=== PATIENT | female | born 1955 | race Caucasian/White ===

== ENCOUNTER → 2017-12-05 11:22 | Outpatient (CLI) | payer OTHER, SELFPAY ==
[2017-12-05 13:01] LABS: AST(SGOT) 26 U/L (15-37); Alanine Aminotransfer ALT/SGPT 52 U/L (13-56); Cholesterol 140 mg/dL (200); High Density Lipoprotein 45 mg/dL; T4 Total, Thyroxin 10.9 ug/dL (4.8-13.9); Triglycerides 113 mg/dL; Very Low Density Lipoprotein 23 mg/dL (5-40)
== END ==
PROVIDERS: Family Provider Family Medicine; PCP Family Medicine; Visit Provider Family Medicine
DX: E78.5 Hyperlipidemia, unspecified (principal); E03.9 Hypothyroidism, unspecified
CPT/HCPCS: 36415; 80061; 84436; 84443; 84450; 84460

== ENCOUNTER → 2018-02-18 11:22 | Outpatient (CLI) | payer OTHER, SELFPAY ==
[2018-02-04 14:54] VITALS: BMI 35.6
--- NOTE | 2018-02-18 11:27 | BD_ITS ---
STUDY: DUAL ENERGY X-RAY ABSORPTIOMETRY / DXA REASON FOR EXAM: Female, 62 years old. The patient is postmenopausal. Loss of height. TECHNIQUE: Bone Mineral Density (BMD) measurements of lumbar spine and bilateral hips were obtained. COMPARISON: Comparison is made with prior study dated October 28, 2012. FINDINGS: Lumbar Spine (L1-L4): g/cm2 (1.412) / T-score (1.9) / Z-score (3.3) Findings are suggestive of normal bone density with a low fracture risk. Left Femur Total: g/cm2 (1.278) / T-score (2.1) / Z-score (3.2) Left Femoral Neck: g/cm2 (1.367) / T-score (2.4) / Z-score (3.7) Right Femur Total: g/cm2 (1.23) / T-score (1.8) / Z-score (2.9) Right Femoral Neck: g/cm2 (1.173) / T-score (1.) / Z-score (2.3) The T-Scores on the most recent prior examination were: Lumbar Spine (L1-L4): There has been improvement of bone density since the previous examination. Left Femur Total: which represents an improvement of 2.2%. Right Femur Total: which represents an improvement of 4.4%. BD/Dexa Bone Density Study IMPRESSION: The patient is considered normal as outlined below according to World [place] Organization (WHO) criteria with a low fracture risk. There has been improvement of bone density since the previous examination. Reference Information: The T-score is the number of standard deviations above or below the standard which is normal for young adults at their peak bone mineral density. The World Health Organization (WHO) interprets the T-scores as follows: Above -1 Normal bone density Between -1 and -2.5 Osteopenia Equal to / or below -2.5 Osteoporosis As a practical clinical guideline, osteopenia may be graded as follows: Mild -1 through -1.5 Moderate -1.6 through -2.0 Severe -2.1 through -2.4 The Z-score is the number of standard deviations above or below age-matched controls. A Z-score of less than -1.5 would be considered abnormal. References: 1. NIH Osteoporosis and Related Bone Diseases http://www.osteo.org 2. International Society for Clinical Densitometry http://www.iscd.org 3. National Osteoporosis Foundation http://www.nof.org Electronically Signed: Sreedhar Pizano MD at 15:59 EST Tel [phone], Service support ,
--- NOTE | 2018-02-18 11:28 | BI_ITS ---
MAMMOGRAPHY - BILATERAL SCREENING REASON FOR EXAM: Female, 62 years old. Routine annual screening examination. PERTINENT HISTORY: Sister with breast cancer. TECHNIQUE: Digital bilateral breast rich (3D mammographic acquisition) in the CC and MLO projections. 2-D mediolateral oblique (MLO) and craniocaudad (CC) views of both breasts were obtained. CAD: Full Field Digital Mammography with Computer Added Detection was performed. COMPARISON: Comparison is made with prior examination dated September 30, 2016 and July 19, 2015. FINDINGS: Breast Composition: There are scattered areas of fibroglandular density. There are no dominant masses or suspicious calcifications. Stable small bilateral axillary lymph nodes. No other significant abnormalities are identified. There has been no significant change since the prior study. BI/SCREENING MAMM (CAD), BILAT IMPRESSION: Stable bilateral screening mammogram. Yearly follow-up mammogram recommended. (A) ASSESSMENT CATEGORY: BIRADS Category 2: Benign. A letter regarding these results will be sent to the patient by the facility within 30 days. Approximately 10% of breast cancers are not detected by mammography. A normal mammogram should not delay biopsy of a clinically suspicious abnormality. [id number] Electronically Signed: Sreedhar Pizano MD at 12:49 EST Tel [phone], Service support ,
--- OUTSIDE RECORDS SUMMARY | 2018-05-22 15:29 | XMS RPT_ITS ---
:1955 Author Organization OHIP Care Team Providers Name Role Phone Bisi Hines PA-C Attending Unavailable Rocío Marjorie Referring Unavailable Rocío Marjorie Attending Unavailable Rocío Marjorie Referring Unavailable Rocío, Marjorie Primary Care Unavailable Glenroy Clifton Attending Unavailable Marjorie Alford Referring Unavailable Rocío, Marjorie Primary Care Unavailable Rocío Marjorie Attending Unavailable Joke, Marjorie Primary Care Unavailable Jayant Youngblood Attending Unavailable Marjorie Alford Referring Unavailable Jayant Youngblood Attending Unavailable Marjorie Alford Referring Unavailable PROBLEMS PROBLEMS DATE TYPE CONDITION / CODE ATTENDING STATUS SOURCE 03/10/2018 Unknown K64.5 - Perianal Jayant Youngblood Active [facility] venous thrombosis Community / K64.5(ICD-10) Hospital Repository 03/13/2018 Unknown E78.5 - Marjorie Alford Active [facility] Hyperlipidemia, Community unspecified / Hospital E78.5(ICD-10) Repository PROCEDURES PROCEDURES No Procedure Records FoundRESULTS RESULTS SURGERY VISIT REPORT Observed: 03/10/2018 Status: F Source: [place] 7:34 AM [facility] REPOSITORY [facility] [address] [place] [address] OFFICE VISIT Date of Service: 02/04/18 MR#: [id number] Acct: [id number] Name: PATRICK DAMON Rep #: [id number] : 1955 Provider: Jayant Youngblood MD Age/Sex: 62/F Location: [facility] Status: Signed with Addenda ADDENDUM by Jayant Youngblood MD on 03/10/18 at 0734 OFFICE PROCEDURES Office Procedure Documentation entered by Jayant Youngblood MD 03/10/18 07:34: 03/10/18 0734 <Electronically signed by Jayant Youngblood MD> Date Jayant Youngblood MD cc: * Signed Intake Vital Signs02/04/18 Body Mass Index (BMI) 35.6 02/04/18 Body Mass Index (BMI) 35.6 Intake Visit Reasons: Thrombosed Hemorrhoid Allergies oxycodone HCl [From Percocet] Adverse Reaction (Verified 02/04/18 14:50) Vomiting Medications Aspirin E.C. [Ecotrin] 81 mg PO DAILY@0800 05/08/16 [History Confirmed 02/04/18] Atorvastatin Calcium [Lipitor] 20 mg PO QHS 05/08/16 [History Confirmed 02/04/18] Latanoprost 0.005% [Xalatan Opthalmic] 1 drp EACH EYE QHS 05/08/16 [History Confirmed 02/04/18] Levothyroxine [Synthroid] 112 mcg PO DAILY 05/08/16 [History Confirmed 02/04/18] Ibuprofen 600 mg PO Q6H PRN PRN #30 tab 05/16/16 [Rx Confirmed 02/04/18] metronidazole 1 % topical gel 1 applic TOPICAL DAILY 01/28/18 [History Confirmed 02/04/18] PFSH Medical History Back pain (Acute) GERD (gastroesophageal reflux disease) (Acute) H/O rosacea (Acute) Hemorrhoid (Acute) Hypercholesterolemia (Acute) Hypothyroidism (Acute) Thrombosed hemorrhoids (Acute) H/O: hysterectomy (Inactive) Surgical History History of appendectomy (Acute) History of carpal tunnel release (Acute) History of cholecystectomy (Acute) History of colonoscopy (Acute) History of hysterectomy (Acute) History of lumpectomy (Acute) S/P appendectomy (Inactive) S/P carpal tunnel release (Inactive) S/P cholecystectomy (Inactive) S/P tonsillectomy (Inactive) Status post left breast lumpectomy (Inactive) Family History Mother Cancer pancreas Father Heart disease Sister Breast cancer Social History Smoking Status: Never smoker HPI HPI HPI: PATRICK DAMON, is a 62 F who presents to the office today for Office Procedures Hemorrhoid Provider Documentation Provider Documentation: Preoperative diagnosis: Thrombosed external hemorrhoid Postoperative diagnosis: The same Procedure: Evacuation of thrombosed external hemorrhoid Surgeon: Dr. Youngblood Procedure: Patient was noted to have an external thrombosed hemorrhoid on the right lateral side. This was prepped with Betadine. 1% lidocaine plain was injected. I dissected down and evacuated a extremely large thrombosed external hemorrhoid. Clotted blood was not sent to pathology. It all appeared benign. I had excellent hemostasis. I saw no other obvious thrombosed hemorrhoids. Sterile dressings were applied. The patient tolerated the procedure well. Patient will continue to do warm soaks in Epsom salts twice a day. She will follow back up with Bisi Hines in 1 week Alert Casa Alert Billing: Yes Hemorrhoid 85808 Evacuation Procedure Time Out Time Out Informed consent given: Yes Consent signed: Yes Time out checklist: patient, procedure, site marked/identified, positioning of patient, supplies available, allergies confirmed, team agrees on procedure Time out staff in room: Yes Time out verified: Yes Time out date: 02/04/18 Time out time: 14:30 Assessment AND Plan Problems 1. Thrombosed hemorrhoids K64.5 Orders Orders: Medications Discontinued: oxycodone-acetaminophen 5-325 mg (Percocet) D1 tab PO Q6H 3 days PRN 10 tabs 0RF pain iscontinued Reason: By Stop Date Coding Level of Care Code Attention Is Support Analyst Diagnoses Thrombosed hemorrhoids K64.5 Additional Codes Hemorrhoid - Hemorrhoid: 60041 Evacuation (95000) 02/11/18 0828 <Electronically signed by Jayant Youngblood MD> Date Jayant Youngblood MD Cosigner Signature: Date (if applicable) CC: SCREENING MAMM (CAD), Observed: 02/18/2018 Status: F Source: [facility] 11:28 AM [facility] REPOSITORY [facility] [address] [place] [address]67 SCREENING MAMM (CAD), BILAT MR#: [id number] Acct: [id number] Name: PATRICK DAMON Rep #: [id number] : 1955 F 62 From: Sreedhar Pizano MD PCP: Marjorie Alford MD Status: REG CLI Study: SCREENING MAMM (CAD), BILAT Date of Exam: 02/18/18 Exam# [id number] Ordering Dr: Marjorie Alford MD MAMMOGRAPHY - BILATERAL SCREENING REASON FOR EXAM: Female, 62 years old. Routine annual screening examination. PERTINENT HISTORY: Sister with breast cancer. TECHNIQUE: Digital bilateral breast rich (3D mammographic acquisition) in the CC and MLO projections. 2-D mediolateral oblique (MLO) and craniocaudad (CC) views of both breasts were obtained. CAD: Full Field Digital Mammography with Computer Added Detection was performed. COMPARISON: Comparison is made with prior examination dated September 30, 2016 and July 19, 2015. FINDINGS: Breast Composition: There are scattered areas of fibroglandular density. There are no dominant masses or suspicious calcifications. Stable small bilateral axillary lymph nodes. No other significant abnormalities are identified. There has been no significant change since the prior study. BI/SCREENING MAMM (CAD), BILAT IMPRESSION: Stable bilateral screening mammogram. Yearly follow-up mammogram recommended. (A) ASSESSMENT CATEGORY: BIRADS Category 2: Benign. A letter regarding these results will be sent to the patient by the facility within 30 days. Approximately 10% of breast cancers are not detected by mammography. A normal mammogram should not delay biopsy of a clinically suspicious abnormality. [id number] Electronically Signed: Sreedhar Pizano MD at 12:49 EST Tel [phone], Service support , CC: Marjorie Alford MD Beck Tender: Signed DEXA BONE DENSITY Observed: 02/18/2018 Status: F Source: [facility] ST[facility] 11:26 AM [facility] REPOSITORY [facility] [address] [place] [address] Dexa Bone Density Study MR#: [id number] Acct: [id number] Name: PATRICK DAMON Rep #: [id number] : 1955 F 62 From: Sreedhar Pizano MD PCP: Marjorie Alford MD Status: REG CLI Study: Dexa Bone Density Study Date of Exam: 02/18/18 Exam# [id number] Ordering Dr: Marjorie Alford MD STUDY: DUAL ENERGY X-RAY ABSORPTIOMETRY / DXA REASON FOR EXAM: Female, 62 years old. The patient is postmenopausal. Loss of height. TECHNIQUE: Bone Mineral Density (BMD) measurements of lumbar spine and bilateral hips were obtained. COMPARISON: Comparison is made with prior study dated October 28, 2012. FINDINGS: Lumbar Spine (L1-L4): g/cm2 (1.412) / T-score (1.9) / Z-score (3.3) Findings are suggestive of normal bone density with a low fracture risk. Left Femur Total: g/cm2 (1.278) / T-score (2.1) / Z-score (3.2) Left Femoral Neck: g/cm2 (1.367) / T-score (2.4) / Z- score (3.7) Right Femur Total: g/cm2 (1.23) / T-score (1.8) / Z-score (2.9) Right Femoral Neck: g/cm2 (1.173) / T-score (1.) / Z- score (2.3) The T-Scores on the most recent prior examination were: Lumbar Spine (L1-L4): There has been improvement of bone density since the previous examination. Left Femur Total: which represents an improvement of 2.2%. Right Femur Total: which represents an improvement of 4.4%. BD/Dexa Bone Density Study IMPRESSION: The patient is considered normal as outlined below according to World [place] Organization (WHO) criteria with a low fracture risk. There has been improvement of bone density since the previous examination. Reference Information: The T-score is the number of standard deviations above or below the standard which is normal for young adults at their peak bone mineral density. The World Health Organization (WHO) interprets the T-scores as follows: Above -1 Normal bone density Between -1 and -2.5 Osteopenia Equal to / or below -2.5 Osteoporosis As a practical clinical guideline, osteopenia may be graded as follows: Mild -1 through -1.5 Moderate -1.6 through -2.0 Severe -2.1 through -2.4 The Z-score is the number of standard deviations above or below age-matched controls. A Z-score of less than -1.5 would be considered abnormal. References: 1. NIH Osteoporosis and Related Bone Diseases http://www.osteo.org 2. International Society for Clinical Densitometry http://www.iscd.org 3. National Osteoporosis Foundation http://www.nof.org Electronically Signed: Sreedhar Pizano MD at 15:59 EST Tel [phone], Service support , CC: Marjorie Alford MD Beck Tender: Signed SURGERY VISIT REPORT Observed: 02/12/2018 Status: F Source: [place] 2:46 PM [facility] REPOSITORY [facility] [address] [place] [address] [address] [place] [address] OFFICE VISIT Date of Service: 02/12/18 MR#: [id number] Acct: [id number] Name: PATRICK DAMON Rep #: [id number] : 1955 Provider: Bisi Hines PA-C Age/Sex: 62/F Location: [facility] Status: Signed Intake Intake Visit Reasons: F/U I AND D THROMBOSED HEMORRHOID 02/04/18 DP Chief Complaint: hemorrhoids Managing Principal Required: No Is patient in pain?: No Allergies oxycodone HCl [From Percocet] Adverse Reaction (Verified 02/12/18 13:41) Vomiting Medications Aspirin E.C. [Ecotrin] 81 mg PO DAILY@0800 05/08/16 [History Confirmed 02/12/18] Atorvastatin Calcium [Lipitor] 20 mg PO QHS 05/08/16 [History Confirmed 02/12/18] Latanoprost 0.005% [Xalatan Opthalmic] 1 drp EACH EYE QHS 05/08/16 [History Confirmed 02/12/18] Levothyroxine [Synthroid] 112 mcg PO DAILY 05/08/16 [History Confirmed 02/12/18] Ibuprofen 600 mg PO Q6H PRN PRN #30 tab 05/16/16 [Rx Confirmed 02/12/18] metronidazole 1 % topical gel 1 applic TOPICAL DAILY 01/28/18 [History Confirmed 02/12/18] Subjective Details: Patient is a 62 y/o female I am following for thrombosed hemorrhoid. Dr. Youngblood performed an incision and evacuation of the external thrombosed hemorrhoid on 02/04/2018. Patient tolerated the procedure well. Patient denies pain/discomfort in this area. She denies bleeding. She has been performing sitz bathes. She has been keeping her stools nice and soft. Objective Details: anus- external hemorrhoids noted. No thrombosed hemorrhoids noted. Non-tender Assessment AND Plan Problems 1. Thrombosed external hemorrhoid K64.5 Plan - Follow-up as needed Coding Level of Care Code Global Post Op Diagnoses Thrombosed external hemorrhoid K64.5 02/12/18 1446 <Electronically signed by Bisi Hines PA-C> Date Bisi Hines PA-C Cosigner Signature: Date (if applicable) CC: Marjorie Alford MD SURGERY VISIT REPORT Observed: 02/03/2018 Status: F Source: [facility] 8:30 AM [facility] REPOSITORY [facility] [address] [place] [address] [address] [place] [address] OFFICE VISIT Date of Service: 01/28/18 MR#: [id number] Acct: [id number] Name: PATRICK DAMON Rep #: [id number] : 1955 Provider: Jayant Youngblood MD Age/Sex: 62/F Location: [facility] Status: Signed Intake Vital Signs01/28/18 Height 5 ft 3 in 01/28/18 Weight: 200 lb 15 oz 01/28/18 Body Mass Index (BMI) 35.6 01/28/18 Blood Pressure 156/94 H Intake Visit Reasons: Thrombosed Hemorrhoid Chief Complaint: hemorrhoids Managing Principal Required: No Is patient in pain?: No Allergies oxycodone HCl [From Percocet] Adverse Reaction (Verified 01/28/18 08:13) Vomiting Medications Aspirin E.C. [Ecotrin] 81 mg PO DAILY@0800 05/08/16 [History Confirmed 01/28/18] Atorvastatin Calcium [Lipitor] 20 mg PO QHS 05/08/16 [History Confirmed 01/28/18] Latanoprost 0.005% [Xalatan Opthalmic] 1 drp EACH EYE QHS 05/08/16 [History Confirmed 01/28/18] Levothyroxine [Synthroid] 112 mcg PO DAILY 05/08/16 [History Confirmed 01/28/18] Ibuprofen 600 mg PO Q6H PRN PRN #30 tab 05/16/16 [Rx Confirmed 01/28/18] metronidazole 1 % topical gel 1 applic TOPICAL DAILY 01/28/18 [History Confirmed 01/28/18] Is last menstrual period known: No Post menopausal: Yes Patient : No PFSH Medical History Back pain (Acute) GERD (gastroesophageal reflux disease) (Acute) H/O rosacea (Acute) Hemorrhoid (Acute) Hypercholesterolemia (Acute) Hypothyroidism (Acute) H/O: hysterectomy (Inactive) Surgical History History of appendectomy (Acute) History of carpal tunnel release (Acute) History of cholecystectomy (Acute) History of colonoscopy (Acute) History of hysterectomy (Acute) History of lumpectomy (Acute) S/P appendectomy (Inactive) S/P carpal tunnel release (Inactive) S/P cholecystectomy (Inactive) S/P tonsillectomy (Inactive) Status post left breast lumpectomy (Inactive) Family History Mother Cancer pancreas Father Heart disease Sister Breast cancer Social History Smoking Status: Never smoker HPI HPI HPI: PATRICK DAMON, is a 62 F who presents to the office today for evaluation for a possible thrombosed hemorrhoid. Patient presents to my office with approximately a 3-week history of a hemorrhoid being out. Over the last week it is been improving and has not been as tender as it originally was on her presentation to her primary care physician. She has been putting topical treatments on her thrombosed hemorrhoid. There has been no bleeding. ROS General General: No weight change, appetite, fatigue, colon cancer, breast cancer or weakness HEENT HEENT: No difficulty swallowing, eye injury, eye surgery, swollen glands or hoarseness Endo Endocrine: Yes thyroid disease; no diabetes mellitus, thyroid cancer, Hair loss, heat intolerance or cold intolerance Musc Musculoskeletal: Yes back problems; no arthritis, rheumatoid arthritis, gout or joint pain Cardio Cardiovascular: No murmur, pacemaker, heart disease, atrial fibrillation, high blood pressure, heart attack, heart stent, palpitations, shortness of breat with exertion or chest pain Resp Respiratory: No shortness of breath, No sleep apnea, No cough, No COPD, No asthma, No emphysema, No wheezing Gastro Gastrointestinal: No abdominal pain, No nausea or vomiting, No diarrhea, No constipation, No blood in stool, Yes acid reflux, No hemorrhoids, No ulcers, No gallbladder problem, No black,tarry stools Orestes Hematologic: No blood thinners, No blood disorders, No bleeding, No anemia, No blood clots Neuro Neurologic: No weakness Exam Cardio Heart Sounds: no murmurs GI Other: Patient has a small thrombosed hemorrhoid on the right lateral side. There does not appear to be any necrotic skin overlying it. There is no signs of cellulitis or infection. It does not appear to have been bleeding Assessment AND Plan Problems 1. Thrombosed hemorrhoids K64.5 Plan At this point we are going to treat her conservatively we are going to allow her to do warm soaks in Epsom salts. I have told her that it will probably take her another 2-3 weeks for this to reach a new normal for her. If she were to gallop new thrombosed hemorrhoids she more likely will need to have excision of these at that time. She will be coming back in contact with me if the warm soaks in Epsom salts do not work. She has had a screening colonoscopy by myself on 11/16/2012. She is not due for another colonoscopy until 2022. Coding Level of Care Code Off vis,new,level 2 Diagnoses Thrombosed hemorrhoids K64.5 02/03/18 0830 <Electronically signed by Jayant Youngblood MD> Date Jayant Youngblood MD Cosigner Signature: Date (if applicable) CC: Marjorie Alford MD LIPID PROFILE Collected: 12/05/2017 Status: F Source: [facility] 11:25 AM [facility] REPOSITORY TYPE CODE TESTS RESULT OUT OF RANGE REFERENCE UNITS LAB L501.4900 200 mg/dL Normal CHOL 140 Result Comment: <200 mg/dL Desirable 200-240 mg/dL Borderline >240 mg/dL High Risk LAB L501.5000 mg/dL Normal TRIG 113 Result Comment: The drugs N-Acetylcysteine and Metamizole may falsely depress this assay. Serum Triglycerides Reference Interval Normal <150 mg/dL Borderline high 150 - 199 mg/dL High 200 - 499 mg/dL Very High > or = 500 mg/dL LAB L501.6400 mg/dL Normal HDL 45 Result Comment: The drugs N-Acetylcysteine and Metamizole may falsely depress this assay. Reference Range HDL <40 mg/dL Low HDL Cholesterol HDL >or= 60 mg/dL High HDL Cholesterol LAB L501.6500 0-130 mg/dL Normal LDL 72 LAB L501.6600 5-40 mg/dL Normal VLDL 23 Performed By: #### L500.4100, L501.4100, L501.4405, L501.9310, L501.9520 #### [facility] [address] [place], [address] AST(SGOT) Collected: 12/05/2017 Status: F Source: [place] 11:25 AM [facility] REPOSITORY TYPE CODE TESTS RESULT OUT OF RANGE REFERENCE UNITS LAB L501.4100 15-37 U/L Normal AST 26 Performed By: #### L500.4100, L501.4100, L501.4405, L501.9310, L501.9520 #### [facility] [address] [place], [place], [id number] ALANINE AMINOTRANSFERAS Collected: 12/05/2017 Status: F Source: [place] (SGPT) 11:25 AM [facility] REPOSITORY TYPE CODE TESTS RESULT OUT OF RANGE REFERENCE UNITS LAB L501.4405 13-56 U/L Normal ALT 52 Performed By: #### L500.4100, L501.4100, L501.4405, L501.9310, L501.9520 #### [facility] [address] [facility] [place], [place], [address] T4 TOTAL, THYROXIN Collected: 12/05/2017 Status: F Source: [place] 11:25 AM [facility] REPOSITORY TYPE CODE TESTS RESULT OUT OF RANGE REFERENCE UNITS LAB L501.9310 4.8-13.9 ug/dL T4 Normal THYROXIN 10.9 Performed By: #### L500.4100, L501.4100, L501.4405, L501.9310, L501.9520 #### [facility] [facility] [place], [place], [address] THYROID STIM HORMONE Collected: 12/05/2017 Status: F Source: [place] (TSH) 11:25 AM [facility] REPOSITORY TYPE CODE TESTS RESULT OUT OF RANGE REFERENCE UNITS LAB L501.9520 0.358-3.74 uIU/mL Normal TSH 0.60 Performed By: #### L500.4100, L501.4100, L501.4405, L501.9310, L501.9520 #### [facility] [address] [place], [address] ALLERGIES ALLERGIES DATE TYPE / CODE NAME / CODE REACTION SEVERITY SOURCE 03/10/2018 Drug oxycodone Vomiting Unknown [facility] Allergy/416 HCl/[id number]([facility] Hospital [id number]([facility] XNORM) Repository ED CT) ENCOUNTERS ENCOUNTERS ADMIT/DISCHARGE ACCOUNT ADMITTING ENCOUNTER LOCATION SOURCE NUMBER CLASS 02/18/2018 [id number] Ambulatory [place] 4 [facility] ing:OPBD Repository 02/12/2018/ [id number] Ambulatory BMSBuilding:B [place] [facility] 6 [facility] Repository 02/04/2018/ [id number] Ambulatory B[facility]Building:[facility] 0 [facility] Repository 01/28/2018/ [id number] Ambulatory BMSBuilding:B [place] 8 8 [facility] Repository 12/05/2017 [id number] Ambulatory [place] 9 [facility] ing:MFPLAB Repository 11/17/2017/ [id number] Ambulatory BMSBuilding:B [place] 8 4 [facility] Repository PAYERS PAYERS ENCOUNTER GUARANTOR PAYER SUBSCRIBER SOURCE 02/18/2018 PATRICK Primary PATRICK [place] [id number] [place] Insurance:MEDICAL VERESDOB: [facility] [id number] [address]Mqp: (330) Number: Repository [phone] () [id number] Date:[id number] [place] [id number]: 02/18/2018 Secondary NOT GIVENUNK [place] Insurance:SELF PAY [facility] Number: Effective Repository Date:2017-12-15 02/12/2018 PATRICK Primary PATRICK [place] [id number] [place] Insurance:MEDICAL VERESDOB: [facility] [id number] [address]Sen: [phone]) Number: Repository [phone] () [id number] Date:1493-82-98[place] [id number]: 02/12/2018 Secondary NOT GIVENUNK [place] Insurance:SELF PAY [facility] Number: Effective Repository Date:2018-02-12 02/04/2018 PATRICK Primary PATRICK [place] [id number] [place] Insurance:MEDICAL VERESDOB: [facility] [id number] [address]Stg: [phone]) Number: Repository [phone] () [id number] Date:[id number] [address] [phone]: 02/04/2018 Secondary NOT GIVENUNK [place] Insurance:SELF PAY [facility] Number: Effective Repository Date:2018-02-04 01/28/2018 PATRICK Primary PATRICK [place] [id number] [place] Insurance:MEDICAL VERESDOB: [facility] [id number] [id number]: [phone]) Number: Repository [phone] () [id number] Date:[id number] [place] [id number]: 01/28/2018 Secondary NOT GIVENUNK [place] Insurance:SELF PAY [facility] Number: Effective Repository Date:2018-01-27 12/05/2017 PATRICK [id number] Primary PATRICK [place] Carriage Insurance:MEDICAL VERESDOB: [facility] [id number] [address]Sxs: (330) Number: Repository [phone] () [id number] Date:[id number] [address] [address]UH: 12/05/2017 Secondary NOT GIVENUNK [place] Insurance:SELF PAY [facility] Number: Effective Repository Date:2017-12-05 11/17/2017 PATRICK Primary NOT GIVENUNK [place] [id number] [place] Insurance:SELF PAY [facility] [address]Ojw: (330) Number: Effective Repository [phone] () Date:2017-11-17
== END ==
PROVIDERS: Family Provider Family Medicine; PCP Family Medicine; Referring Provider Family Medicine; Visit Provider Family Medicine
DX: Z01.419 Encounter for gynecological examination (general) (routine) without abnormal findings (principal); Z12.31 Encounter for screening mammogram for malignant neoplasm of breast
CPT/HCPCS: 77063; 77067; 77080

== ENCOUNTER → 2018-09-09 | Outpatient (CLI) | payer BC, SELFPAY ==
[2018-05-09 10:38] VITALS: BMI 35.6
--- NOTE | 2018-09-09 07:45 | CT_ITS ---
STUDY: CT PARANASAL SINUSES WITH CONTRAST REASON FOR EXAM: Female, 62 years old. Anosmia. RADIATION DOSAGE (If Supplied By Facility): CTDIvol = ( 33.45 ) mGy, DLP = ( 378.27 ) mGycm TECHNIQUE: The patient was scanned in a multi-detector CT scanner. High resolution transaxial imaging was performed following the intravenous administration of 100cc IV Isovue 300. Sagittal and coronal images were reconstructed. Individualized dose optimization techniques were used for this CT. COMPARISON: None. FINDINGS: FRONTAL SINUSES: Normal development and aeration of the bilateral frontal sinuses without mucosal inflammatory disease. ETHMOIDAL SINUSES: Minimal mucosal thickening along the posterior aspect of the right ethmoid sinus. MAXILLARY SINUSES: Mild mucosal thickening of the right maxillary sinus. SPHENOIDAL SINUSES: Normal aeration of the bilateral sphenoid sinuses and there is no mucosal inflammatory disease. OMU: Normal aeration of the bilateral maxillary infundibulum. Normal uncinate process, ethmoid bulla, and hiatus semilunaris. MIDDLE TURBINATES: Normal bilateral middle turbinates without a fan bullosa or paradoxical curvature. INFERIOR TURBINATES: Normal bilateral inferior turbinates. NASAL SEPTUM: Normal midline nasal septum and there is no nasal septal mass lesions, deviation or spur. Normal anterior cranial fossa, tom rose and cribriform plate. Normal bilateral orbital contents. Normal nasopharynx without adenoidal pad hypertrophy, or a posterior nasopharyngeal retention cyst. There is no demonstrated enhancing soft tissue or osseous abnormality. CT/Sinus/Facial Bone WITH Contras IMPRESSION: Mucosal thickening of the right maxillary and right posterior ethmoid sinus. Electronically Signed: Sreedhar Pizano, at 15:51 EDT , Service support ,
== END | disposition home or self-care (01) ==
LOC: CT 07:44
PROVIDERS: Family Provider Family Medicine; PCP Family Medicine; Visit Provider Family Medicine
DX: R43.0 Anosmia (principal)
CPT/HCPCS: 70487; Q9967

== ENCOUNTER → 2020-02-14 16:20 | Outpatient (CLI) | payer BC, SELFPAY ==
[2018-05-09 10:38] VITALS: BMI 35.6
== END ==
PROVIDERS: PCP Family Medicine; Visit Provider Nurse Practitioner Family
DX: U07.1 COVID-19 (principal)
CPT/HCPCS: 87635; U0003

== ENCOUNTER → 2020-03-13 15:28 | Outpatient (CLI) | payer BC, SELFPAY ==
[2018-05-09 10:38] VITALS: BMI 35.6
[2020-03-13 18:01] LABS: Absolute Lymphocyte Count 1.96 X10^3/uL (0.83-4.51); Absolute Neutrophil Count 4.6 X10^3/uL (2.0-7.7); Basophil# 0.05 X10^3/uL; Basophil% 0.7 % (0-1); Eosinophil# 0.24 X10^3/uL; Eosinophils% 3.1 % (0-5); Hemoglobin 12.6 g/dL (12.0-15.0); Lymphocyte # 1.96 X10^3/ul (4.0); Lymphocyte % 25.7 % (19-41); Mean Corp Hgb Conc 30.7 g/dL (32-36); Mean Corpuscular Volume 87.8 fL (81-99); Monocyte# 0.78 X10^3/uL; Monocyte% 10.2 % (0-10); NRBC Flagged by Analyzer 0 % (0-5); Neutrophil # 4.58 X10^3/uL (2.7-7.7); Neutrophil % 59.9 % (47-70); Platelet Count 313 K/mm3 (150-450); RBC Distribution Width CV 14.6 % (11.6-14.6); RBC Distribution Width SD 47.1 fl (35.1-43.9); Red Blood Count 4.67 M/mm3 (4.2-5.4); White Blood Count 7.6 K/mm3 (4.4-11.0)
[2020-03-13 18:22] LABS: AST(SGOT) 43 U/L (15-37); Alanine Aminotransfer ALT/SGPT 63 U/L (13-56); Albumin, Serum 3.8 g/dL (3.2-5.0); Alkaline Phosphatase 101 U/L (45-117); Anion Gap 7 (5-15); BUN 15 mg/dL (7-18); BUN/Creat Ratio 20.6 RATIO (10-20); Calcium,Total 9.2 mg/dL (8.5-10.1); Chloride 106 mmol/L (98-107); Creatinine, Serum 0.73 mg/dL (0.55-1.02); EST Glomerular Filtration Rate 86 mL/min (>60); Est Glom Filt Rate - Afr Amer 104 mL/min (>60); Globulin 3.8 g/dL (2.2-4.2); Glucose 88 mg/dL (74-106); Potassium 3.9 mmol/L (3.5-5.1); Protein, Total 7.6 g/dL (6.4-8.2); Sodium Level 139 mmol/L (136-145)
== END ==
PROVIDERS: PCP Family Medicine; Referring Provider Family Medicine; Visit Provider Family Medicine
DX: U07.1 COVID-19 (principal); R10.9 Unspecified abdominal pain
CPT/HCPCS: 36415; 80053; 85025; 87077; 87086; 87088; 87186

== ENCOUNTER → 2020-03-17 10:03 | Outpatient (CLI) | payer BC, SELFPAY ==
[2018-05-09 10:38] VITALS: BMI 35.6
--- NOTE | 2020-03-17 10:07 | BI_ITS ---
MAMMOGRAPHY - BILATERAL SCREENING REASON FOR EXAM: Female, 64 years old. Routine annual screening examination. PERTINENT HISTORY: Sister with breast cancer. Remote left excisional breast biopsy. TECHNIQUE: Digital bilateral breast loli (3D mammographic acquisition) in the CC and MLO projections. 2-D mediolateral oblique (MLO) and craniocaudad (CC) views of both breasts were obtained. CAD: Full Field Digital Mammography with Computer Added Detection was performed. COMPARISON: Comparison is made with prior study dated 02/18/2018 and 09/30/2016. FINDINGS: Breast Composition: There are scattered areas of fibroglandular density. There are no dominant masses or suspicious calcifications. Stable benign-appearing axillary lymph nodes. No other significant abnormalities are identified. There has been no significant change since the prior study. BI/SCRN MAMM (CAD)W/LOLI BILAT IMPRESSION: Stable bilateral screening mammogram. Yearly follow-up mammogram recommended. (A) ASSESSMENT CATEGORY: BIRADS Category 2: Benign. A letter regarding these results will be sent to the patient by the facility within 30 days. Approximately 10% of breast cancers are not detected by mammography. A normal mammogram should not delay biopsy of a clinically suspicious abnormality. [id number] Electronically Signed: Sreedhar Pizano, at 11:17 EST , Service support ,
== END ==
PROVIDERS: PCP Family Medicine; Referring Provider Family Medicine; Visit Provider Family Medicine
DX: Z12.31 Encounter for screening mammogram for malignant neoplasm of breast (principal)
CPT/HCPCS: 77063; 77067

== ENCOUNTER → 2020-07-25 09:54 | Outpatient (CLI) | payer BC, SELFPAY ==
[2018-05-09 10:38] VITALS: BMI 35.6
[2020-07-25 12:40] LABS: AST(SGOT) 25 U/L (15-37); Alanine Aminotransfer ALT/SGPT 39 U/L (13-56); Cholesterol 163 mg/dL (200); High Density Lipoprotein 47 mg/dL; T4 Total, Thyroxin 9.2 ug/dL (4.8-13.9); Triglycerides 177 mg/dL; Very Low Density Lipoprotein 35 mg/dL (5-40)
== END ==
PROVIDERS: PCP Family Medicine; Referring Provider Family Medicine; Visit Provider Family Medicine
DX: E03.9 Hypothyroidism, unspecified (principal); E78.5 Hyperlipidemia, unspecified
CPT/HCPCS: 36415; 80061; 84436; 84443; 84450; 84460

== ENCOUNTER → 2020-12-18 | Outpatient (CLI) | payer BC, SELFPAY | END | disposition home or self-care (01) | LOC: LABSPEC 08:24 | PROVIDERS: PCP Family Medicine; Referring Provider Physician Assistant Surgical; Visit Provider Physician Assistant Surgical | DX: Z11.52 Encounter for screening for COVID-19 (principal) | CPT/HCPCS: 87635; U0005; U0003 ==

== ENCOUNTER → 2020-12-19 | Outpatient (CLI) | payer BC, SELFPAY | END | disposition home or self-care (01) | PROVIDERS: PCP Family Medicine; Referring Provider Family Medicine; Visit Provider Family Medicine | DX: J20.9 Acute bronchitis, unspecified (principal) | CPT/HCPCS: 87635; U0005; U0003 ==

== ENCOUNTER 2021-01-27 10:13 | Emergency (ER) | payer BC, MEDICARE, SELFPAY ==
[2021-01-27 10:13] VITALS: BP 159/83; PULSE 92; RESP 18; TEMP 36.2; O2SAT 97; BMI 17.0
--- NOTE | 2021-01-27 12:58 | EX.ED.DYSGE1 ---
HPI History of Present Illness Chief Complaint: Nosebleed Informant: patient Narrative Narrative: Patient had left-sided epistaxis about 3 days ago when she was in the shower. This stopped after pressure. It happened again this morning. It was much heavier this time. It was bleeding on the left. She pinched the nose and she actually got some out the right then. It seems to have stopped now with pinching. She is on baby aspirin but no other anticoagulation. No trauma. She does not feel ill. There is no open congestion sneezing coughing facial pain or drainage. Pressure makes it better nothing makes it worse other than may be getting in the shower. She does not have history of chronic nosebleeds. [facility] Medical History Back pain GERD (gastroesophageal reflux disease) H/O rosacea Hemorrhoid History of cystocele History of kidney stones Hypercholesterolemia Hypothyroidism Thrombosed hemorrhoids Home Medications aspirin 81 mg PO DAILY@0800 05/08/16 [History Last Taken Unknown] atorvastatin 20 mg PO QHS 05/08/16 [History Last Taken Unknown] latanoprost 1 drp EACH EYE QHS 05/08/16 [History Last Taken Unknown] levothyroxine 112 mcg PO DAILY 05/08/16 [History Last Taken Unknown] metronidazole 1 % topical gel 1 applic TOPICAL DAILY 01/28/18 [History Last Taken Unknown] Allergy/AdvReac Type Severity Reaction Status Date / Time codeine AdvReac Other Verified 01/27/21 10:17 oxycodone HCl [From Percocet] AdvReac Vomiting Verified 01/27/21 10:17 Family History Mother Cancer pancreas Father Heart disease Sister Breast cancer Surgical History H/O: hysterectomy History of appendectomy History of carpal tunnel release History of cholecystectomy History of colonoscopy History of hysterectomy History of lumpectomy S/P appendectomy S/P carpal tunnel release S/P cholecystectomy S/P tonsillectomy Status post left breast lumpectomy Social History Smoking Status: Never smoker alcohol intake: current ROS ROS ED Constitutional Constitutional ED: Denies chills or fever(s) Eyes Eyes: Denies blurry vision ENT ENT ED: Reports other Details: See history of present illness ; Denies rhinorrhea or sore throat Cardiovascular Cardiovascular: Denies chest pain Respiratory/Chest Respiratory/Chest: Denies dyspnea Gastrointestinal Gastrointestinal: Denies diarrhea, nausea or vomiting Genitourinary Genitourinary ED: Denies hematuria Musculoskeletal Musculoskeletal: Denies myalgias Integumentary Denies rash Endocrine Endocrinology: Denies polydipsia or polyuria Allergic/Immunologic Allergic/Immunologic ED: Denies mouth swelling, tongue swelling or urticaria EXAM Physical Exam Const Vital Signs: 01/27/21 10:13 Temperature 97.2 F L Temperature Source Oral Pulse Rate 92 Respiratory Rate 18 Blood Pressure 159/83 H Blood Pressure Mean 108 Pulse Ox 97 Oxygen Delivery Method Room Air Positive well nourished and well developed General Appearance ED: well developed and NAD; Negative for pallor HEENT HEENT Narrative: No sinus tenderness. No pallor. Her nose is not bleeding with a nasal compression on anteriorly. No retropharyngeal blood on exam. Eyes EOMs intact bilaterally Neck no lymphadenopathy Chest Wall inspection of chest normal Resp normal respiratory effort and clear to auscultation bilaterally Cardio regular rate and regular rhythm GI normal to inspection, nondistended, normoactive bowel sounds and non-tender Palpation: soft Neuro Sensorium / Orientation: alert Psych mental status grossly normal Skin no rashes or lesions noted Skin Narrative: No intraoral or skin petechiae. No purpura. No Aller. General Skin Exam: Negative for jaundice or pallor MDM MDM MDM Narrative Medical decision making narrative: Nose was then pinched. There is no active bleeding. There is a very diffusely friable area at Kiesselbach's plexus on the left side. No sign of bleeding on the right. Procedure: Packing of nose for epistaxis: Sejal solution was placed in cottonball in the left. This was allowed to sit. A short 3 cm hemostatic foam was placed anteriorly and then expanded with solution. There is been no rebleeding in between. Patient actually got up and went to the restroom already and came back. We are going to watch her a bit longer. Patient has been watched here. She has no bleeding whatsoever. There is no pink or red on the packing. We will get her home. We discussed reasons to return. Discharge Plan Triage Chief Complaint: Nosebleed ED Provider: Rafi Connelly Dx/Rx/DC Orders Clinical Impression: Left-sided epistaxis Instructions: ED Epistaxis (Adult) Prescriptions: No Action metronidazole [Metrogel] 1 % gel 1 applic TOPICAL DAILY RF: 0 latanoprost 1 DROP bottle 1 drp EACH EYE QHS RF: 0 atorvastatin 20 MG tablet 20 mg PO QHS RF: 0 levothyroxine 112 MCG tablet 112 mcg PO DAILY RF: 0 aspirin 81 MG tablet 81 mg PO DAILY@0800 RF: 0 Primary Care Provider: Marjorie Alford Referrals: Marjorie Alford MD [Primary Care Provider] - Gregor Mckeon MD [STAFF PHYSICIAN] - 2 Days
[2021-01-27 14:20] VITALS: BP 139/79; PULSE 66; RESP 16; O2SAT 97
== END 2021-01-27 14:31 | disposition home or self-care (01) ==
LOC: ED 11:15
PROVIDERS: Emergency Provider Emergency Medicine; PCP Family Medicine
DX: R04.0 Epistaxis (principal); E03.9 Hypothyroidism, unspecified; E78.00 Pure hypercholesterolemia, unspecified; K21.9 Gastro-esophageal reflux disease without esophagitis; Z87.442 Personal history of urinary calculi; Z87.19 Personal history of other diseases of the digestive system; Z79.82 Long term (current) use of aspirin; Z79.899 Other long term (current) drug therapy
CPT/HCPCS: 30901; 99284

== ENCOUNTER 2021-01-30 12:48 | Emergency (ER) | payer BC, MEDICARE, SELFPAY ==
[2021-01-30 12:48] VITALS: BP 179/97; PULSE 82; RESP 16; TEMP 36.6; O2SAT 98; BMI 36.6
--- NOTE | 2021-01-30 14:32 | ED.RN ---
paged mamadou weiss for dr stevens
--- NOTE | 2021-01-30 14:34 | EDS_ITS ---
HPI HPI - URI History of Present Illness Chief Complaint: Nosebleed Detail of Chief Complaint: Epistaxis left side Informant: patient Onset/Context/Timing Onset: Days (Patient was initially seen on Friday and then yesterday by Dr. Mcghee) Context: Sudden Onset Timing: Intermittent Current Severity: Mild Maximum Severity: Mild Worsened by: Not Worsened By Swallowing, Eating Solids and Drinking Liquids Relieved by: Not Relieved By Tylenol and NSAIDs Associated Symptoms Associated Symptoms: Positive for Headache, Nausea, Shortness of Breath and Nonproductive cough; Negative for Nasal Congestion, Sinus Pressure, Myalgias, Vomiting, Diarrhea, Chest Pain, Hemoptysis and Productive Cough Narrative Narrative: Patient is a 65-year-old woman with history of hypercholesterolemia who was seen this past weekend for epistaxis. She was packed. She was seen by Dr. Harsha Jiménez yesterday. She was cauterized and repacked. This morning she had a significant mount of blood. She contacted the office. She was instructed that he is in the OR and she should go to the emergency room. She states that he wanted to be contacted. He was paged. Presently she is not bleeding. She discontinued taking the aspirin she was prescribed. She is not bruising easily. She has no other complaints. Prior similar symptoms: Yes Recent Illness/Hospitalization: Yes ROS [facility] ED Constitutional Constitutional ED: Denies chills, fever(s), subjective or sweats Eyes Eyes: Denies blurry vision, change in vision or diplopia ENT ENT ED: Reports other Details: Epistaxis left side ; Denies ear pain, rhinorrhea or sore throat Hematologic/Lymphatic Hematologic/Lymphatic: Denies easy bleeding or easy bruising Allergic/Immunologic Allergic/Immunologic ED: Denies mouth swelling, tongue swelling or urticaria [facility] Medical History Back pain GERD (gastroesophageal reflux disease) H/O rosacea Hemorrhoid History of cystocele History of kidney stones Hypercholesterolemia Hypothyroidism Thrombosed hemorrhoids Home Medications atorvastatin 20 mg PO QHS 05/08/16 [History Last Taken Unknown] latanoprost 1 drp EACH EYE QHS 05/08/16 [History Last Taken Unknown] levothyroxine 112 mcg PO DAILY 05/08/16 [History Last Taken Unknown] Allergy/AdvReac Type Severity Reaction Status Date / Time codeine AdvReac Other Verified 01/30/21 12:50 oxycodone HCl [From Percocet] AdvReac Vomiting Verified 01/30/21 12:50 Family History Mother Cancer pancreas Father Heart disease Sister Breast cancer Surgical History H/O: hysterectomy History of appendectomy History of carpal tunnel release History of cholecystectomy History of colonoscopy History of hysterectomy History of lumpectomy S/P appendectomy S/P carpal tunnel release S/P cholecystectomy S/P tonsillectomy Status post left breast lumpectomy Social History (Updated 01/30/21 @ 14:[address] Luis Miguel Pavon MD) household members: spouse Smoking Status: Never smoker alcohol intake: current substance use type: does not use EXAM Physical Exam Const Vital Signs: 01/30/21 12:48 Temperature 97.8 F Temperature Source Temporal Pulse Rate 82 Respiratory Rate 16 Blood Pressure 179/97 H Blood Pressure Mean 124 Pulse Ox 98 Oxygen Delivery Method Room Air Positive well nourished, well developed and obese General Appearance ED: well developed and NAD; Negative for pallor Nutritional Appearance: obese HEENT Reports moist mucous membranes normocephalic and atraumatic External Ear: external ears normal Eyes PERRL and EOMs intact bilaterally General Eye ED: Negative for pale conjunctiva or scleral icterus Neck supple, no meningeal signs and no JVD Resp normal respiratory effort Cardio Rate: regular rate Rhythm: regular rhythm Neuro oriented x3 and CN's II-XII intact bilaterally Sensorium / Orientation: alert Psych mental status grossly normal Skin General Skin Exam: Negative for jaundice or pallor Lesions: no lesions Rashes: no rashes MDM MDM MDM Narrative Medical decision making narrative: Patient was discussed with Dr. Mcghee. Patient has not actively bleeding there is no blood in the posterior pharynx plan is for her to be seen on . She was told to not take any aspirin until seen by him. She is on no anticoagulant. Discharge Plan Triage Chief Complaint: Nosebleed ED Provider: Luis Miguel Pavon Dx/Rx/DC Orders Clinical Impression: Anterior epistaxis Instructions: ED Epistaxis (Adult) Prescriptions: No Action latanoprost 1 DROP bottle 1 drp EACH EYE QHS RF: 0 atorvastatin 20 MG tablet 20 mg PO QHS RF: 0 levothyroxine 112 MCG tablet 112 mcg PO DAILY RF: 0 Primary Care Provider: Marjorie Alford Referrals: Marjorie Alford MD [Primary Care Provider] - Gregor Mckeon MD [STAFF PHYSICIAN] - 02/01/21 Activity Restrictions/Additional Instructions: Take any aspirin or aspirin-like products until seen by Dr. Mckeon Do not dab the pack. Disposition Disposition: Home, Self Care
== END 2021-01-30 16:23 | disposition home or self-care (01) ==
PROVIDERS: Emergency Provider Emergency Medicine; PCP Family Medicine
DX: R04.0 Epistaxis (principal); E66.9 Obesity, unspecified; Z68.36 Body mass index [BMI] 36.0-36.9, adult; E78.00 Pure hypercholesterolemia, unspecified; K21.9 Gastro-esophageal reflux disease without esophagitis; E03.9 Hypothyroidism, unspecified; Z87.442 Personal history of urinary calculi; Z87.19 Personal history of other diseases of the digestive system; Z79.899 Other long term (current) drug therapy
CPT/HCPCS: 99282

== ENCOUNTER → 2021-09-25 | Outpatient (CLI) | payer BC, SELFPAY ==
--- NOTE | 2021-09-25 14:43 | BI_ITS ---
MAMMOGRAPHY - BILATERAL SCREENING REASON FOR EXAM: Female, 66 years old. Routine annual screening examination. PERTINENT HISTORY: Sister with breast cancer. Remote left excisional breast biopsy. TECHNIQUE: Digital bilateral breast loli (3D mammographic acquisition) in the CC and MLO projections. 2-D mediolateral oblique (MLO) and craniocaudad (CC) views of both breasts were obtained. CAD: Full Field Digital Mammography with Computer Added Detection was performed. COMPARISON: Comparison is made with prior study dated 03/17/2020 and 02/18/2018. FINDINGS: Breast Composition: There are scattered areas of fibroglandular density. There is a 6.2 mm x 6 mm nodular density in the slightly upper central portion of the right breast. Correlation with ultrasound is recommended. Stable benign-appearing bilateral axillary lymph. No other significant abnormalities are identified. BI/SCRN MAMM (CAD)W/LOLI BILAT IMPRESSION: 6.2 mm x 6 mm nodular density in the slightly upper central portion of the right breast. Correlation with ultrasound is recommended. ASSESSMENT CATEGORY: BIRADS Category 0: Incomplete. Need additional imaging evaluation. A letter regarding these results will be sent to the patient by the facility within 30 days. Approximately 10% of breast cancers are not detected by mammography. A normal mammogram should not delay biopsy of a clinically suspicious abnormality. [id number] Electronically Signed: Sreedhar Pizano MD at 8:20 EDT ,
--- NOTE | 2021-09-25 15:06 | BD_ITS ---
STUDY: DUAL ENERGY X-RAY ABSORPTIOMETRY / DXA REASON FOR EXAM: Female, 66 years old. V76.12ScreeningBONE DENSITY REASON FOR EXAM TECHNIQUE: Bone Mineral Density (BMD) measurements of lumbar spine and bilateral hips were obtained. COMPARISON: Comparison is made with prior study dated 02/18/2018. FINDINGS: Lumbar Spine (L1-L4): g/cm2 (1.213) / T-score (1.5) / Z-score (3.3) Findings are suggestive of normal bone density with a low fracture risk. Left Femur Total: g/cm2 (1.128) / T-score (1.5) / Z-score (2.8) Left Femoral Neck: g/cm2 (1.096) / T-score (2.2) / Z-score (3.8) Right Femur Total: g/cm2 (1.097) / T-score (1.3) / Z-score (2.6) Right Femoral Neck: g/cm2 (1.134) / T-score (2.6) / Z-score (4.1) The T-Scores on the most recent prior examination were: Lumbar Spine (L1-L4): There has been worsening of bone density since the previous examination. Left Femur Total: which represents a worsening of 6.3%. Right Femur Total: which represents a worsening of 5.8%. BD/Dexa Bone Density Study IMPRESSION: The patient is considered normal as outlined below according to World [place] Organization (WHO) criteria with a low fracture risk. There has been worsening of bone density since the previous examination. Reference Information: The T-score is the number of standard deviations above or below the standard which is normal for young adults at their peak bone mineral density. The World Health Organization (WHO) interprets the T-scores as follows: Above -1 Normal bone density Between -1 and -2.5 Osteopenia Equal to / or below -2.5 Osteoporosis As a practical clinical guideline, osteopenia may be graded as follows: Mild -1 through -1.5 Moderate -1.6 through -2.0 Severe -2.1 through -2.4 The Z-score is the number of standard deviations above or below age-matched controls. A Z-score of less than -1.5 would be considered abnormal. References: 1. NIH Osteoporosis and Related Bone Diseases www osteo.org 2. International Society for Clinical Densitometry www iscd.org 3. National Osteoporosis Foundation www nof.org Electronically Signed: Sreedhar Pizano MD at 10:14 EDT ,
== END | disposition home or self-care (01) ==
PROVIDERS: PCP Family Medicine; Visit Provider Family Medicine
DX: Z12.31 Encounter for screening mammogram for malignant neoplasm of breast (principal); M85.80 Other specified disorders of bone density and structure, unspecified site; Z80.3 Family history of malignant neoplasm of breast; N95.9 Unspecified menopausal and perimenopausal disorder
CPT/HCPCS: 77063; 77067; 77080

== ENCOUNTER → 2021-10-08 | Outpatient (CLI) | payer BC, SELFPAY ==
--- NOTE | 2021-10-08 08:34 | US_ITS ---
STUDY: ULTRASOUND BREAST - RIGHT REASON FOR EXAM: Female, 66 years old. Abnormal screening mammogram. TECHNIQUE: Axial and longitudinal images of the RIGHT breast were performed with a high resolution ultrasound transducer. # OF IMAGES: 25 COMPARISON: Comparison is made with prior mammogram dated 09/25/2021. FINDINGS: RIGHT Breast: The entire superior half of the right breast was examined with ultrasound. No sonographic and mouth is seen. Additional mammographic views will be obtained including 90 degree lateral and compression spot views. US/Breast Limited Unilateral IMPRESSION: Unremarkable sonogram. Additional mammographic imaging will be obtained including 90 degree lateral and compression spot views. ASSESSMENT CATEGORY: BIRADS Category 0: Incomplete. Need additional imaging evaluation. A letter regarding these results will be sent to the patient by the facility within 30 days. Electronically Signed: Sreedhar Pizano MD at 15:16 EDT ,
--- NOTE | 2021-10-08 09:16 | BI_ITS ---
MAMMOGRAPHY - UNILATERAL DIAGNOSTIC: RIGHT BREAST REASON FOR EXAM: Female, 66 years old. Abnormal screening mammogram. PERTINENT HISTORY: Sister with breast cancer. Remote left excisional breast biopsy. TECHNIQUE: Compression magnification spot view of the right breast and 90 degree lateral view were obtained. CAD: Full Field Digital Mammography with Computer Added Detection was performed. COMPARISON: Comparison is made with prior mammogram dated 09/25/2021 and prior sonogram done earlier today. FINDINGS: Breast Composition: There are scattered areas of fibroglandular density. Persistent 6.2 mm x 6 mm nodular density in the slightly upper central portion of the right breast. This was not visualized on the sonogram. Correlation with MRI of the breast is recommended. No other significant abnormalities are identified. BI/DIAG MAMM W/CAD, UNILAT IMPRESSION: Persistent 6.2 mm x 6 mm nodular density in the slightly upper central portion of the right breast as described. Correlation with MRI is recommended. ASSESSMENT CATEGORY: BIRADS Category 0: Incomplete. Need additional imaging evaluation. A letter regarding these results will be sent to the patient by the facility within 30 days. Approximately 10% of breast cancers are not detected by mammography. A normal mammogram should not delay biopsy of a clinically suspicious abnormality. Electronically Signed: Sreedhar Pizano MD at 12:01 EDT ,
== END | disposition home or self-care (01) ==
PROVIDERS: PCP Family Medicine; Visit Provider Family Medicine
DX: R92.2 Inconclusive mammogram (principal)
CPT/HCPCS: 76642; 77065

== ENCOUNTER → 2021-10-25 | Outpatient (CLI) | payer BC, SELFPAY ==
--- NOTE | 2021-10-25 10:20 | MRI_ITS ---
STUDY: BILATERAL BREAST MR WITHOUT AND WITH CONTRAST REASON FOR EXAM: Female, 66 years old. Sister with breast cancer. History of remote left excisional breast biopsy. Nodule in right breast on mammogram and ultrasound. TECHNIQUE: Multi-sequence multi-echo imaging of both breasts was performed with a dedicated breast coil. T1-weighted and T2-weighted images were performed before the administration of contrast. T1-weighted images were also performed after the administration of IV DOTAREM 19 CC without complications. COMPARISON: Right diagnostic mammogram and right breast ultrasound dated 10/08/2021. Screening mammogram dated 09/25/2021. FINDINGS: RIGHT BREAST: The breast tissue is fatty with minimal background enhancement. There are no abnormal enhancing masses or areas of non-mass enhancement in the right breast. No focal nodule to correspond to the right breast abnormality seen on ultrasound. LEFT BREAST: The breast tissue is fatty with minimal background enhancement. There are no abnormal enhancing masses or areas of non-mass enhancement in the left breast. There are no enlarged or abnormal lymph nodes. There is no abnormality in the visualized regions of the chest or liver. MRI/Breast Bilateral W/O and W IMPRESSION: No abnormality of either breast on the breast MRI examination with contrast. Yearly follow-up screening mammogram recommended. CATEGORY: BIRADS Category 2: Benign. A letter regarding these results will be sent to the patient by the facility within 30 days. Electronically Signed: Keyshawn Rose, at 14:14 EDT ,
[2021-10-25 11:00] LABS: CREATININE FINGERSTICK < 0.9 mg/dL (0.55-1.02); EGFR FINGERSTICK > 60.0000 mL/min (>60)
== END | disposition home or self-care (01) ==
PROVIDERS: PCP Family Medicine; Visit Provider Family Medicine
DX: N63.0 Unspecified lump in unspecified breast (principal)
CPT/HCPCS: 77049; A9575; A4216; C8908

== ENCOUNTER → 2021-12-05 | Outpatient (CLI) | payer BC, SELFPAY ==
[2021-12-05 16:46] LABS: AST(SGOT) 41 U/L (15-37); Alanine Aminotransfer ALT/SGPT 102 U/L (13-56); Cholesterol 239 mg/dL (200); High Density Lipoprotein 41 mg/dL; T4 Total, Thyroxin 6.5 ug/dL (4.8-13.9); Thyroid Stim Hormone (TSH) 6.51 uIU/mL (0.358-3.74); Triglycerides 166 mg/dL; Very Low Density Lipoprotein 33 mg/dL (5-40)
== END | disposition home or self-care (01) ==
LOC: MFPLAB 12:41
PROVIDERS: PCP Family Medicine; Referring Provider Family Medicine; Visit Provider Family Medicine
DX: E03.9 Hypothyroidism, unspecified (principal); E78.5 Hyperlipidemia, unspecified
CPT/HCPCS: 36415; 80061; 84436; 84443; 84450; 84460

== ENCOUNTER → 2022-03-14 | Outpatient (CLI) | payer BC, SELFPAY ==
[2022-03-14 10:24] LABS: AST(SGOT) 18 U/L (15-37); Alanine Aminotransfer ALT/SGPT 40 U/L (13-56); Anion Gap 6 (5-15); BUN 20 mg/dL (7-18); BUN/Creat Ratio 24.8 RATIO (10-20); Calcium,Total 9.1 mg/dL (8.5-10.1); Chloride 105 mmol/L (98-107); Cholesterol 154 mg/dL (200); EST Glomerular Filtration Rate 76 mL/min (>60); Est Glom Filt Rate - Afr Amer 92 mL/min (>60); Glucose 148 mg/dL (74-106); High Density Lipoprotein 53 mg/dL; Potassium 4.2 mmol/L (3.5-5.1); Sodium Level 139 mmol/L (136-145); Triglycerides 135 mg/dL; Very Low Density Lipoprotein 27 mg/dL (5-40)
== END | disposition home or self-care (01) ==
LOC: MTLAB 07:28
PROVIDERS: PCP Family Medicine; Referring Provider Family Medicine; Visit Provider Family Medicine
DX: E78.5 Hyperlipidemia, unspecified (principal); I10 Essential (primary) hypertension; E03.9 Hypothyroidism, unspecified
CPT/HCPCS: 36415; 80048; 80061; 84436; 84443; 84450; 84460

== ENCOUNTER → 2024-03-05 | Outpatient (CLI) | payer BC, SELFPAY ==
[2024-03-05 18:03] LABS: Protein, Urine (Random) 10.5 mg/dL (<11.9); Protein:Creat Ratio 165 mg/g CRE (0-200)
[2024-03-05 18:11] LABS: AST(SGOT) 24 U/L (15-37); Alanine Aminotransfer ALT/SGPT 40 U/L (13-56); Anion Gap 4 (5-15); BUN 12 mg/dL (7-18); BUN/Creat Ratio 18.6 RATIO (10-20); Calcium,Total 9.2 mg/dL (8.5-10.1); Chloride 108 mmol/L (98-107); Cholesterol 108 mg/dL (200); Creatinine, Serum 0.64 mg/dL (0.55-1.02); EST Glomerular Filtration Rate 97 mL/min (>60); Est Glom Filt Rate - Afr Amer 118 mL/min (>60); Glucose 111 mg/dL (74-106); High Density Lipoprotein 44 mg/dL; Potassium 3.9 mmol/L (3.5-5.1); Sodium Level 139 mmol/L (136-145); T4 Total, Thyroxin 9.3 ug/dL (4.8-13.9); Thyroid Stim Hormone (TSH) 0.918 uIU/mL (0.358-3.740); Triglycerides 132 mg/dL; Very Low Density Lipoprotein 26 mg/dL (5-40)
== END | disposition home or self-care (01) ==
LOC: MFPLAB 16:48
PROVIDERS: PCP Family Medicine; Referring Provider Family Medicine; Visit Provider Family Medicine
DX: E03.9 Hypothyroidism, unspecified (principal); I10 Essential (primary) hypertension; E78.5 Hyperlipidemia, unspecified
CPT/HCPCS: 36415; 80048; 80061; 82570; 84156; 84436; 84443; 84450; 84460

== ENCOUNTER → 2024-03-11 | Outpatient (CLI) | payer BC, SELFPAY ==
--- NOTE | 2024-03-11 17:17 | BI_ITS ---
MAMMOGRAPHY - BILATERAL SCREENING REASON FOR EXAM: Female, 68 years old. Routine annual screening examination. PERTINENT HISTORY: Sister with breast cancer. History of prior left excisional breast biopsy. TECHNIQUE: Digital bilateral breast loli (3D mammographic acquisition) in the CC and MLO projections. 2-D mediolateral oblique (MLO) and craniocaudad (CC) views of both breasts were obtained. CAD: Full Field Digital Mammography with Computer Added Detection was performed. COMPARISON: Comparison is made with prior study dated September 25, 2021 and October 08, 2021. FINDINGS: Breast Composition: There are scattered areas of fibroglandular density. There are no dominant masses or suspicious calcifications. The previously seen 6 mm nodule in the upper central portion of the right breast is not seen at this time. Stable small bilateral axillary lymph nodes. No other significant abnormalities are identified. There has been no significant change since the prior study. BI/SCRN MAMM (CAD)W/LOLI BILAT IMPRESSION: Stable bilateral screening mammogram. Yearly follow-up mammogram recommended. (A) ASSESSMENT CATEGORY: BIRADS Category 2: Benign. A letter regarding these results will be sent to the patient by the facility within 30 days. Approximately 10% of breast cancers are not detected by mammography. A normal mammogram should not delay biopsy of a clinically suspicious abnormality. [id number] Electronically Signed: Sreedhar Pizano MD at 8:43 EST ,
== END | disposition home or self-care (01) ==
LOC: OPBI 03-12 13:14
PROVIDERS: PCP Family Medicine; Referring Provider Family Medicine; Visit Provider Family Medicine
DX: Z12.31 Encounter for screening mammogram for malignant neoplasm of breast (principal); Z80.3 Family history of malignant neoplasm of breast
CPT/HCPCS: 77063; 77067

== ENCOUNTER 2025-03-02 07:42 | Emergency (ER) | payer BC, SELFPAY ==
[2025-03-02 07:45] VITALS: BP 148/85; PULSE 76; RESP 14; TEMP 36.7; O2SAT 97
[2025-03-02 07:58] VITALS: BMI 37.8
--- NOTE | 2025-03-02 08:03 | RAD_ITS ---
PROCEDURE: KNEE 4 OR MORE VIEWS 03/02/2025 REASON FOR EXAM: PAIN TECHNIQUE: Procedure Code: RADKN Modality: DX Procedure: KNEE 4 OR MORE VIEWS FINDINGS: No acute fracture or dislocation. Severe lateral and mild medial compartment joint space narrowing is noted, with tricompartmental marginal osteophytosis. A small suprapatellar joint effusion appears to be present. Patient body habitus limits evaluation for focal soft tissue swelling. RAD/Knee 4 or More Views IMPRESSION: As above. Reading Location: [id number]
--- NOTE | 2025-03-02 08:23 | EX.ED.DYSGE1 ---
HPI History of Present Illness Chief Complaint: Lower Extremity Injury Narrative Narrative: Patient is a 69-year-old female with past medical history of rosacea, hypercholesteremia, hypothyroidism, GERD who presented to the emergency department with a chief complaint of left knee pain. Patient states that while at work yesterday she went to stand up and heard popping and cracking in her knee and states that ever since then she has had some difficulty bearing weight on it secondary to pain. She denies any falls or injuries to her knee recently. Patient denies any travel history denies any history of blood clots. [facility] Medical History Contact with and (suspected) exposure to other viral communicable diseases URI (upper respiratory infection) Contact with and (suspected) exposure to other viral communicable diseases Gastroenteritis Encounter for screening for COVID-19 History of kidney stones History of cystocele Thrombosed hemorrhoids H/O rosacea Hypercholesterolemia Hemorrhoid Hypothyroidism Back pain GERD (gastroesophageal reflux disease) Home Medications ?Medication ?Instructions ?Recorded ?Last Taken ?Type atorvastatin 20 mg tablet 20 mg PO QHS 05/08/16 Unknown History latanoprost 0.005 % eye drops 1 drp EACH EYE QHS 05/08/16 Unknown History levothyroxine 112 mcg tablet 112 mcg PO DAILY 05/08/16 Unknown History methylprednisolone 4 mg tablets in See Rx Instructions PO PER PKG DIR 11/24/23 Unknown Rx a dose pack (Medrol (Eric)) #21 tabs diclofenac sodium 1 % topical gel 4 g topical Q6H PRN PRN pain, mild 03/02/25 Unknown Rx (Voltaren Arthritis Pain) #100 grams Allergy/AdvReac Type Severity Reaction Status Date / Time codeine AdvReac Other Verified 03/02/25 07:45 oxycodone HCl (From Percocet) AdvReac Vomiting Verified 03/02/25 07:45 Family History Mother Cancer pancreas Father Heart disease Sister Breast cancer Surgical History History of colonoscopy History of lumpectomy History of carpal tunnel release History of hysterectomy History of appendectomy History of cholecystectomy S/P tonsillectomy S/P appendectomy S/P carpal tunnel release S/P cholecystectomy Status post left breast lumpectomy H/O: hysterectomy Social History household members: spouse Smoking Status: Never smoker alcohol intake: current substance use type: does not use ROS ROS ED ROS Narrative Constitutional: Denies any fevers or chills Neurological: Denies numbness, weakness, tingling Musculoskeletal: Complains of left knee pain as noted above Skin: Denies any rashes or lesions EXAM Physical Exam Narrative Exam Narrative: General: Patient was lying in bed rest comfortably not appear to be in acute distress Head: Atraumatic, normocephalic Eyes: PERRL bilaterally, EOMI bilaterally, no conjunctival injection noted Neck: Soft, supple, trachea midline Cardiovascular:Regular rate Musculoskeletal: Compartments are soft and compressible, all bony prominences palpated in the left lower extremity mild tenderness to palpation in the knee otherwise no pain elicited. Patient does have range of motion of her knee no evidence of short arc syndrome Extremities: DP pulses +2/4 in the left lower extremity Neurological: Patient following commands that she was at [facility] year is 2024 sensation grossly intact Skin: Warm, dry, tact no rashes or lesions no petechia no purpura noted Const Vital Signs: 03/02/25 07:45 Temperature 98.1 F Temperature Source Oral Pulse Rate 76 Respiratory Rate 14 Blood Pressure 148/85 H Blood Pressure Mean 106 Pulse Ox 97 Oxygen Delivery Method Room Air MDM MDM MDM Narrative Medical decision making narrative: Patient is a 69-year-old female who presented to the emergency department the chief complaint of left knee pain. On the differential diagnose includes but not limited to osteoarthritis, occult fracture, ligamentous injury, meniscal injury. Once workup is obtained and reviewed she will be reevaluated. Patient be given a dose of IM Toradol. Patient's x-ray of her knee reviewed by myself and by radiology which showed no acute fracture or dislocation patient does have small suprapatellar joint effusion noted. Discussed results with the patient she would like to go home at this point time she was advised to follow-up with the orthopedic surgeon for which she was referred to as well as rotate Tylenol and ibuprofen [id number] for mild to moderate pain. Patient was given a prescription for Voltaren gel. She is encouraged to return with worsening symptoms or other concerns. All question concerns answered she was discharged home in stable condition Radiography Diagnostic Testing: Clinical Impression(s) from Imaging Studies Knee X-Ray 03/02/25 08:03 IMPRESSION: As above. Reading Location: [facility] Discharge Plan Triage Chief Complaint: Lower Extremity Injury ED Provider: Feng Menjivar Dx/Rx/DC Orders Clinical Impression: Knee pain, left, Osteoarthritis, Joint effusion Prescriptions: New diclofenac sodium [Voltaren Arthritis Pain] 1 % gel 4 g topical Q6H PRN PRN (Reason: pain, mild) Qty: 100 0RF No Action methylprednisolone [Medrol (Eric)] 4 mg tablets,dose pack See Rx Instructions PO PER PKG DIR Qty: 21 0RF Rx Instructions: PO PER PKG DIR latanoprost 1 DROP bottle 1 drp EACH EYE QHS atorvastatin 20 MG tablet 20 mg PO QHS levothyroxine 112 MCG tablet 112 mcg PO DAILY Primary Care Provider: Roxanna Almazan Referrals: Marjorie Alford MD [Med Staff - [facility], [facility]] Activity Restrictions/Additional Instructions: Follow-up with the orthopedic surgeon you are referred to. Follow-up your doctor in outpatient setting. Your x-ray showed evidence of arthritis. Rotate Tylenol and ibuprofen [id number] for mild to moderate pain when you do that she can take something every 3 hours for pain max dose Tylenol in 24 hours 4000 mg. Max dose of ibuprofen in 24 hours 3200 mg. Use the prescription gel as prescribed. Print Language: Tamazight Disposition Disposition: Home, Self Care
[2025-03-02] MEDS: Ketorolac 30 MG/ML Syringe IM (09:02)
--- OUTSIDE RECORDS SUMMARY | 2025-03-02 09:11 | XMS RPT_ITS | CCD ---
Author Organization [facility] Care Team Providers Care Skidder Runner Name Role Phone Dr. Marjorie Alford Primary Care Provider Dr. Marjorie Alford Referring Provider HERNAN Nicole Attending Provider [phone] Dr. Marjorie Alford Primary Care Provider Dr. Marjorie Alford Referring Provider HERNAN Nicole Attending Provider HERNAN Lieberman Attending Provider Marjorie Alford Primary Care Unavailable Marjorie Alford Referring Unavailable Marjorie Alford Attending Unavailable Marjorie Alford Attending Unavailable Marjorie Alford Primary Care Unavailable Marjorie Alford Referring Unavailable Marjorie Alford Primary Care Unavailable Glenroy Lieberman Attending Unavailable Marjorie Alford Referring Unavailable Allergies Allergy Classification Reported Allergen(s) Allergy Type Date of Onset Reaction(s) Facility (5 sources) Codeine Drug Allergy 01-30-2021 Other [facility] (6 sources) oxyCODONE; Translations: [oxycodone HCl] Drug Allergy 01-30-2021 Vomiting [facility] (1 source) Codeine Drug Allergy 11-24-2023 [facility] Repository Medications Current Medications Medication Drug Class(es) Dates Sig (Normalized) Sig (Original) atorvastatin 20 mg oral tablet (5 sources) HMG-CoA Reductase Inhibitor Start: 05-08-2016 take 20 mg by mouth at bedtime Atorvastatin Active 20 MG PO AT BEDTIME May 08, 2016 12:00am latanoprost 0.05 mg/ml ophthalmic solution (5 sources) Prostaglandin Analog Start: 05-08-2016 Latanoprost Active 1 DRP EACH EYE AT BEDTIME May 08, 2016 12:00am levothyroxine sodium 0.112 mg oral tablet (5 sources) l-Thyroxine Start: 05-08-2016 take 112 ug by mouth once daily Levothyroxine Active 112 MCG PO DAILY May 08, 2016 12:00am predniSONE 10 mg oral tablet (1 source) Start: 02-21-2022 take 10 mg by mouth twice daily Prednisone Active 10 MG PO TWICE A DAY February 21, 2022 12:00am promethazine hydrochloride 25 mg oral tablet (5 sources) Phenothiazine Start: 04-30-2021 take 25 mg by mouth three times daily Promethazine Active 25 MG PO THREE TIMES A DAY April 30, 2021 12:00am Completed/Discontinued Medications Medication Drug Class(es) Dates Sig (Normalized) Sig (Original) acetaminophen 325 mg / HYDROcodone bitartrate 5 mg oral tablet (5 sources) Opioid Agonist Start: 05-16-2016 End: 01-28-2018 take 1 tablet by mouth every six hours as needed Hydrocodone-Acetami nophen Discontinued 1 - 2 TABLET PO EVERY 6 HOURS NEEDED May 15, 2016 11:00pm January 28, 2018 8:13am acetaminophen 325 mg / oxyCODONE hydrochloride 5 mg oral tablet (5 sources) Opioid Agonist Start: 02-04-2018 End: 02-07-2018 take 1 tablet by mouth every six hours Oxycodone-Acetamino phen (Percocet) 5-325 mg tablet Discontinued 1 TABLET PO EVERY 6 HOURS 10 February 04, 2018 February 07, 2018 12:16am docusate sodium 100 mg oral capsule (5 sources) Start: 05-16-2016 End: 01-28-2018 Docusate Sodium Discontinued 100 MG PO TWICE A DAY May 15, 2016 11:00pm January 28, 2018 8:13am take twice daily to keep BM soft for two weeks, then may use prn Problems Active Problems Problem Classification Problem Date Documented Date Episodic/Chronic Immunizations and screening for infectious disease (11 sources) Patient encounter status; Translations: [Encounter for screening for COVID-19] Episodic Noninfectious gastroenteritis (5 sources) Gastroenteritis; Translations: [Noninfective gastroenteritis and colitis, unspecified] 04-30-2021 Episodic Other connective tissue disease (5 sources) Impingement syndrome of shoulder region; Translations: [Impingement syndrome of right shoulder] 02-18-2017 Episodic Other screening for suspected conditions (not mental disorders or infectious disease) (1 source) Encounter for screening mammogram for malignant neoplasm of breast; Translations: [Encounter for screening mammogram for malignant neoplasm of breast] Onset: 04-02-2024 Episodic Other upper respiratory disease (5 sources) Bleeding from nose; Translations: [Epistaxis] 02-04-2021 Episodic Other upper respiratory disease (5 sources) Anterior epistaxis; Translations: [Epistaxis] 02-07-2021 Episodic Other upper respiratory infections (5 sources) Chronic frontal sinusitis; Translations: [Chronic frontal sinusitis] 05-09-2018 Chronic Other upper respiratory infections (4 sources) Acute pharyngitis; Translations: [Acute pharyngitis, unspecified] Episodic Sprains and strains (5 sources) Strain of rotator cuff of shoulder; Translations: [Strain of muscle(s) and tendon(s) of the rotator cuff of right shoulder, initial encounter] 02-18-2017 Episodic Thyroid disorders (1 source) Hypothyroidism, unspecified; Translations: [Hypothyroidism, unspecified] Onset: 03-31-2024 Chronic Past or Other Problems Problem Classification Problem Date Documented Da te Episodic/Chronic Other circulatory disease (1 source) Other specified symptoms and signs involving the circulatory and respiratory systems; Translations: [Other specified symptoms and signs involving the circulatory and respiratory systems] Onset: 11-24-2023 Episodic Results Test Name Value Interpretation Reference Range Facility SCRN MAMM (CAD)W/LOLI BILLori n 03-11-2024 SCRN MAMM (CAD)W/LOLI BILAT [facility] Imaging Services [address] [place] [address] [id number] SCRN MAMM (CAD)W/LOLI BILAT MR#: [id number] Acct: [id number] Name: PATRICK DAMON Rep #: [id number] : 1955 F 68 From: Sreedhar pepe MD PCP: Dr. Marjorie Alford MD Status: PRE CLI Study: SCRN MAMM (CAD)W/LOLIBrittney ALLENAT Date of Exam: 11/25 Exam# [id number] Ordering Dr: Marjorie Alford MD [id number] MAMMOGRAPHY - BILATERAL SCREENING REASON FOR EXAM: Female, 68 years old. Routine annual screening examination. PERTINENT HISTORY: Sister with breast cancer. History of prior left excisional breast biopsy. TECHNIQUE: Digital bilateral breast loli (3D mammographic acquisition) in the CC and MLO projections. 2-D mediolateral oblique (MLO) and craniocaudad (CC) views of both breasts were obtained. CAD: Full Field Digital Mammography with Computer Added Detection was performed. COMPARISON: Comparison is made with prior study dated September 25, 2021 and October 08, 2021. FINDINGS: Breast Composition: There are scattered areas of fibroglandular density. There are no dominant masses or suspicious calcifications. The previously seen 6 mm nodule in the upper central portion of the right breast is not seen at this time. Stable small bilateral axillary lymph nodes. No other significant abnormalities are identified. There has been no significant change since the prior study. BI/SCRN MAMM (CAD)W/LOLI BILAT IMPRESSION: Stable bilateral screening mammogram. Yearly follow-up mammogram recommended. (A) ASSESSMENT CATEGORY: BIRADS Category 2: Benign. A letter regarding these results will be sent to the patient by the facility within 30 days. Approximately 10% of breast cancers are not detected by mammography. A normal mammogram should not delay biopsy of a clinically suspicious abnormality. [id number] Electronically Signed: Sreedhar Pizano MD at 8:43 EST , CC: Dr. Marjorie Alford MD Grocery Deliverer: Signed Normal [facility] AST(SGOT)on 03-05-2024 AST [Catalytic activity/Vol] 24 U/L Normal 15-37 [facility] Comment on above: Performed By: #### L 501.9310, L501.4405, L501.9520, L501.4100, L501.0900, L500.2500, L500.4100 #### [facility] [address] [place], [address] Alanine Aminotransferas (SGP T)on 03-05-2024 ALT [Catalytic activity/Vol] 40 U/L Normal 13-56 [facility] Comment on above: Performed By: #### L 501.9310, L501.4405, L501.9520, L501.4100, L501.0900, L500.2500, L500.4100 #### [facility] [address] [place], [place], [id number] ([phone]) Basic Metabolic Profile (BMP )on 03-05-2024 BUN/CRE 18.6 RATIO Normal 10-20 [facility] Comment on above: Performed By: #### L 501.9310, L501.4405, L501.9520, L501.4100, L501.0900, L500.2500, L500.4100 #### [facility] [address] [place], [place], [id number] ([phone]) CA,Total 9.2 mg/dL Normal 8.5-10.1 [facility] Comment on above: Performed By: #### L 501.9310, L501.4405, L501.9520, L501.4100, L501.0900, L500.2500, L500.4100 #### [facility] [address] [place], [address] Chloride [Moles/Vol] 108 mmol/L High 98-107 [facility] Comment on above: Performed By: #### L 501.9310, L501.4405, L501.9520, L501.4100, L501.0900, L500.2500, L500.4100 #### [facility] [address] [place], [address] CO2 [Moles/Vol] 27.0 mmol/L Normal 21.0-32.0 [facility] Comment on above: Performed By: #### L 501.9310, L501.4405, L501.9520, L501.4100, L501.0900, L500.2500, L500.4100 #### [facility] [address] [place], [address] Creatinine [Mass/Vol] 0.64 mg/dL Normal 0.55-1.02 [facility] Comment on above: Result Comment: The validity of the calculated GFR GFRAA in patients over 70 years has not been determined. Clinical correlation is essential. Performed By: #### L 501.9310, L501.4405, L501.9520, L501.4100, L501.0900, L500.2500, L500.4100 #### [facility] [address] [place], [address] EST GFR - AA 118 mL/min Normal >60 [facility] Comment on above: Result Comment: Afri can Japanese GFR Calc Performed By: #### L 501.9310, L501.4405, L501.9520, L501.4100, L501.0900, L500.2500, L500.4100 #### [facility] [address] [place], [address] GAP 4 Low 5-15 [facility] Comment on above: Performed By: #### L 501.9310, L501.4405, L501.9520, L501.4100, L501.0900, L500.2500, L500.4100 #### [facility] [address] [place], [address] GFR/1.73 sq M.predicted among non-blacks MDRD (S/P/Bld) [Vol rate/Area] 97 mL/min/{1.73_m2} Normal >60 [facility] Comment on above: Result Comment: Non- GFR Calc Performed By: #### L 501.9310, L501.4405, L501.9520, L501.4100, L501.0900, L500.2500, L500.4100 #### [facility] [address] [place], [address] Glucose [Mass/Vol] 111 mg/dL High 74-106 [facility] Comment on above: Result Comment: Fast ing Glucose result from 100 to 125 mg/dL suggests IMPAIRED HOMEOSTASIS per A.D.A. criteria. Performed By: #### L 501.9310, L501.4405, L501.9520, L501.4100, L501.0900, L500.2500, L500.4100 #### [facility] [address] [place], [address] Potassium [Moles/Vol] 3.9 mmol/L Normal 3.5-5.1 [facility] Comment on above: Performed By: #### L 501.9310, L501.4405, L501.9520, L501.4100, L501.0900, L500.2500, L500.4100 #### [facility] [address] [place], [address] Sodium [Moles/Vol] 139 mmol/L Normal 136-145 [facility] Comment on above: Performed By: #### L 501.9310, L501.4405, L501.9520, L501.4100, L501.0900, L500.2500, L500.4100 #### [facility] [address] [place], [address] Urea nitrogen [Mass/Vol] 12 mg/dL Normal 7-18 [facility] Comment on above: Performed By: #### L 501.9310, L501.4405, L501.9520, L501.4100, L501.0900, L500.2500, L500.4100 #### [facility] [address] [place], [address] Lipid Profileon 03-05-2024 Cholesterol [Mass/Vol] 108 mg/dL Normal 200 [facility] Comment on above: Result Comment: <200 mg/dL Desirable 200-240 mg/dL Borderline >240 mg/dL High Risk Performed By: #### L 501.9310, L501.4405, L501.9520, L501.4100, L501.0900, L500.2500, L500.4100 #### [facility] [address] [place], [address] Cholesterol in HDL [Mass/Vol] 44 mg/dL Normal [facility] Comment on above: Result Comment: The drugs N-Acetylcysteine and Metamizole may falsely depress this assay. Reference Range HDL <40 mg/dL Low HDL Cholesterol HDL >or= 60 mg/dL High HDL Cholesterol Performed By: #### L 501.9310, L501.4405, L501.9520, L501.4100, L501.0900, L500.2500, L500.4100 #### [facility] [address] [place], [address] Cholesterol in LDL [Mass/Vol] 38 mg/dL Normal 0-130 [facility] Comment on above: Performed By: #### L 501.9310, L501.4405, L501.9520, L501.4100, L501.0900, L500.2500, L500.4100 #### [facility] [address] [place], [address] Cholesterol in VLDL [Mass/Vol] 26 mg/dL Normal 5-40 [facility] Comment on above: Performed By: #### L 501.9310, L501.4405, L501.9520, L501.4100, L501.0900, L500.2500, L500.4100 #### [facility] [address] [place], [address] Triglyceride [Mass/Vol] 132 mg/dL Normal [facility] Comment on above: Result Comment: The drugs N-Acetylcysteine and Metamizole may falsely depress this assay. Serum Triglycerides Reference Interval Normal <150 mg/dL Borderline high 150 - 199 mg/dL High 200 - 499 mg/dL Very High > or = 500 mg/dL Performed By: #### L 501.9310, L501.4405, L501.9520, L501.4100, L501.0900, L500.2500, L500.4100 #### [facility] [address] [place], [address] Protein+Creatinine Ratio,Uri neon 03-05-2024 PROT:CRE RATIO 165 mg/g CRE Normal 0-200 [facility] Comment on above: Performed By: #### L 501.9310, L501.4405, L501.9520, L501.4100, L501.0900, L500.2500, L500.4100 #### [facility] [address] [place], [address] Protein (U) [Mass/Vol] 10.5 mg/dL Normal <11.9 [facility] Comment on above: Performed By: #### L 501.9310, L501.4405, L501.9520, L501.4100, L501.0900, L500.2500, L500.4100 #### [facility] [address] [place], [address] UR CREAT 63.60 mg/dL Normal NO RANGE EST. [facility] Comment on above: Performed By: #### L 501.9310, L501.4405, L501.9520, L501.4100, L501.0900, L500.2500, L500.4100 #### [facility] [address] [place], [place], [address] T4 Total, Thyroxinon 025 T4 [Mass/Vol] 9.3 ug/dL Normal 4.8-13.9 [facility] Comment on above: Performed By: #### L 501.9310, L501.4405, L501.9520, L501.4100, L501.0900, L500.2500, L500.4100 #### [facility] [address] [place], [address] Thyroid Stim Hormone (TSH)on 03-05-2024 TSH 0.918 uIU/mL Normal 0.358-3.740 [facility] Comment on above: Performed By: #### L 501.9310, L501.4405, L501.9520, L501.4100, L501.0900, L500.2500, L500.4100 #### [facility] [address] [place], [place], [address] Urgent Care Visit Reporton 0 11-24-2023 Urgent Care Visit Report [facility] [address], [address] [place], [place] [address] OFFICE VISIT Date of Service: 11/24/23 MR#: [id number] Acct: [id number] Name: PATRICK DAMON Rep #: [id number] : 1955 Provider: HERNAN Lindo Age/Sex: 68/F Location: [facility] Status: Signed Intake Vital Signs 09/25/21 15:04 11/24/23 07:58 Height 5 ft 3 in 5 ft 3 in Weight: 206 lb 2 oz BMI 36.5 BP 120/78 Position Sitting Pulse 84 Temp 97.8 F Temp Source Temporal Pulse Oximetry (%) 97 Oxygen Delivery Method room air Intake Visit Reasons: SINUS COMPLAINT/WANTS COVID TEST Accompanied by: Self Allergies codeine Adverse Reaction (Verified 11/24/23 08:01) Other oxycodone HCl (From Percocet) Adverse Reaction (Verified 11/24/23 08:01) Vomiting Medications ???Medication ???Instructions ???Recorded ???Confirmed ???Type atorvastatin 20 mg tablet 20 mg PO QHS 05/08/16 11/24/23 History latanoprost 0.005 % eye drops 1 drp EACH EYE QHS 05/08/16 11/24/23 History levothyroxine 112 mcg tablet 112 mcg PO DAILY 05/08/16 11/24/23 History methylprednisolone 4 mg tablets in See Rx Instructions PO PER PKG DIR 11/24/23 11/24/23 Rx a dose pack (Medrol (Eric)) #21 tabs Have you fallen in the past year?: No [facility] Medical History (Updated 04/15/22 @ 08:57 by Glenroy BECERRA, PA) Contact with and (suspected) exposure to other viral communicable diseases URI (upper respiratory infection) Contact with and (suspected) exposure to other viral communicable diseases Gastroenteritis Encounter for screening for COVID-19 History of kidney stones History of cystocele Thrombosed hemorrhoids H/O rosacea Hypercholesterolemia Hemorrhoid Hypothyroidism Back pain GERD (gastroesophageal reflux disease) Surgical History History of colonoscopy History of lumpectomy History of carpal tunnel release History of hysterectomy History of appendectomy History of cholecystectomy S/P tonsillectomy S/P appendectomy S/P carpal tunnel release S/P cholecystectomy Status post left breast lumpectomy H/O: hysterectomy Family History Mother Cancer pancreas Father Heart disease Sister Breast cancer Social History (Updated 01/30/21 @ 14:[address] Luis Miguel Pavon MD) household members: spouse Smoking Status: Never smoker alcohol intake: current substance use type: does not use HPI HPI Details: PATRICK DAMON, is a 68 F who presents to the office today for 6 hr h/o congestion/ runny nose. No history of fever, chills, cough, MOULTON, myalgias, fatigue, nausea, and diarrhea. Patient notes no complaints of chest pain or shortness of breath or dyspnea on exertion. Several close contacts recently dx???d w/ similar URI complaints. No dkri-nwx-vlwwawp taken to assist. No other associated symptoms and no other alleviating/aggravat ing factors. ROS Const Constitutional: No other (As above) Exam Const General: cooperative, healthy appearing and no acute distress Orientation: alert, awake and oriented x3 HENMT Head: normal to inspection Ears: hearing grossly normal bilaterally, external ears normal, TM's normal bilaterally and EAC's normal Nose: external nose normal, nares normal, septum normal and clear nasal discharge Face and sinus: normal facial exam, sinuses nontender and face symmetric Mouth: oral mucosae normal, lip normal, tongue normal and oropharynx normal Throat: posterior oropharynx normal, tonsils normal, uvula midline and no postnasal drainage Eyes General: appearance normal, both eyes and all related structures Neck Neck: normal visual inspection, full ROM, no lymphadenopathy, no meningeal signs and supple Neck mass: No Thyroid: thyroid normal Lymphatic: no lymphadenopathy noted Chest Chest palpation inspection: normal inspection of the chest Resp Effort Inspection: normal respiratory effort, able to speak in complete sentences and no unsolicited cough during today's exam Auscultation: Bilateral: Clear to Auscultation Cardio Palpation: normal PMI Rate: tachycardic Rhythm: regular rhythm Heart Sounds: S1 normal, S2 normal, no gallops, no murmurs and no rubs Pulses: radial pulses present Skin General: no rashes or lesions noted Neuro General: patient alert, patient awake and patient oriented x3 Cognition: normal cognition Speech: speech normal Psych Appearance: grossly normal Mental Status: mental status grossly normal Mood: congruent mood Affect: normal affect Speech and Movement: speech and movement normal Attitude: cooperative Diagnoses Contact with or exposure to other viral diseases Z20.828 URI (upper respiratory infection) J06.9 Assessment and Plan Assessment and Plan (1) Contact (more content not included)... Normal [facility] Basophil percentageOrdered B y: Dr. Alford on 03-14-2022 Chloride [Moles/Vol] 105 mmol/L 98-107 [facility] Cholesterol [Mass/Vol] 154 mg/dL <200 [facility] Comment on above: <200 mg/dL Desirable 200-240 mg/dL Borderline >240 mg/dL High Risk Glucose [Mass/Vol] 148 mg/dL 74-106 [facility] Comment on above: Fasting Glucose resu lt greater than or equal to 126 mg/dL suggests DIABETES MELLITUS per A.D.A. criteria. Potassium [Moles/Vol] 4.2 mmol/L 3.5-5.1 [facility] Sodium [Moles/Vol] 139 mmol/L 136-145 [facility] Triglyceride [Mass/Vol] 135 mg/dL <199 [facility] Comment on above: The drugs N-Acetylcy steine and Metamizole may falsely depress this assay.Serum Triglycerides Reference Interval Normal <150 mg/dL Borderline high 150 - 199 mg/dL High 200 - 499 mg/dL Very High > or = 500 mg/dL Laboratory - Chemistry and C hemistry - challengeOrdered By: Dr. Alford on 03-14-2022 ALT [Catalytic activity/Vol] 40 U/L -56 [facility] CO2 [Moles/Vol] 28.0 mmol/L 21.0-32.0 [facility] T4 [Mass/Vol] 10.0 ug/dL 4.8-13.9 [facility] Urea nitrogen/Creatinine [Mass ratio] 24.8 mg/mg 10-20 [facility] No Panel InformationOrdered By: Dr. Alford on 03-14-2022 Estimated GFR (MDRD) Amer 92 mL/min >60 [facility] Comment on above: GFR Calc Estimated GFR (MDRD) Non-Af Amer 76 mL/min >60 [facility] Comment on above: Non- GFR Calc Thyroid Stimulating Hormone (TSH) 0.30 uIU/mL 0.358-3.74 [facility] Serum or plasma calcium dale urement (mass/volume)Ordered By: Dr. Alford on 03-14-2022 Calcium [Mass/Vol] 9.1 mg/dL 8.5-10.1 [facility] Serum or plasma cholesterol in HDL measurement (mass/volume)Ordered By: Dr. Alford on 03-14-2022 Cholesterol in HDL [Mass/Vol] 53 mg/dL >40 [facility] Comment on above: The drugs N-Acetylcy steine and Metamizole may falsely depress this assay. Reference Range HDL <40 mg/dL Low HDL Cholesterol HDL >or= 60 mg/dL High HDL Cholesterol Serum or plasma cholesterol in VLDL measurement (mass/volume)Ordered By: Dr. Alford on 03-14-2022 Cholesterol in VLDL [Mass/Vol] 27 mg/dL 5-40 [facility] Serum or plasma creatinine m easurement (mass/volume)Ordered By: Dr. Alford on 03-14-2022 Creatinine [Mass/Vol] 0.80 mg/dL 0.55-1.02 [facility] Comment on above: The validity of the calculated GFR & GFRAA in patients over 70 years has not been determined. Clinical correlation is essential. Serum or plasma low density lipoprotein (LDL) cholesterol measurement (mass/volume)Ordered By: Dr. Alford on 03-14-2022 Cholesterol in LDL [Mass/Vol] 74 mg/dL 0-130 [facility] Serum or plasma urea nitroge n measurement (mass/volume)Ordered By: Dr. Alford on 03-14-2022 Urea nitrogen [Mass/Vol] 20 mg/dL 7-18 [facility] Thin prep Papanicolaou smear with manual screeningOrdered By: Dr. Alford on 03-14-2022 Thin prep Papanicolaou smear with manual screening 18 U/L 15-37 [facility] Thin prep Papanicolaou smear with manual screening 6 5-15 [facility] Laboratory - Microbiology an d Antimicrobial susceptibilityon 02-21-2022 SARS-CoV-2 (COVID-19) RNA KADI+probe Ql (Unsp spec) Not detected [facility] No Panel Informationon 02-21 Influenza Types A,B Rapid (Clinic) Not detected [facility] Basophil percentageOrdered B y: Dr. Alford on 12-05-2021 Cholesterol [Mass/Vol] 239 mg/dL <200 [facility] Comment on above: <200 mg/dL Desirable 200-240 mg/dL Borderline >240 mg/dL High Risk Triglyceride [Mass/Vol] 166 mg/dL <199 [facility] Comment on above: The drugs N-Acetylcy steine and Metamizole may falsely depress this assay.Serum Triglycerides Reference Interval Normal <150 mg/dL Borderline high 150 - 199 mg/dL High 200 - 499 mg/dL Very High > or = 500 mg/dL Laboratory - Chemistry and C hemistry - challengeOrdered By: Dr. Alford on 12-05-2021 ALT [Catalytic activity/Vol] 102 U/L 13-56 [facility] T4 [Mass/Vol] 6.5 ug/dL 4.8-13.9 [facility] No Panel InformationOrdered By: Dr. Alford on 12-05-2021 Thyroid Stimulating Hormone (TSH) 6.51 uIU/mL 0.358-3.74 [facility] Serum or plasma cholesterol in HDL measurement (mass/volume)Ordered By: Dr. Alford on 12-05-2021 Cholesterol in HDL [Mass/Vol] 41 mg/dL >40 [facility] Comment on above: The drugs N-Acetylcy steine and Metamizole may falsely depress this assay. Reference Range HDL <40 mg/dL Low HDL Cholesterol HDL >or= 60 mg/dL High HDL Cholesterol Serum or plasma cholesterol in VLDL measurement (mass/volume)Ordered By: Dr. Alford on 12-05-2021 Cholesterol in VLDL [Mass/Vol] 33 mg/dL 5-40 [facility] Serum or plasma low density lipoprotein (LDL) cholesterol measurement (mass/volume)Ordered By: Dr. Alford on 12-05-2021 Cholesterol in LDL [Mass/Vol] 165 mg/dL 0-130 [facility] Thin prep Papanicolaou smear with manual screeningOrdered By: Dr. Alford on 12-05-2021 Thin prep Papanicolaou smear with manual screening 41 U/L 15-37 [facility] Laboratory - Microbiology an d Antimicrobial susceptibilityon 12-03-2021 S. pyogenes Ag IA Ql (Unsp spec) Negative [facility] SARS-CoV-2 (COVID-19) RNA KADI+probe Ql (Unsp spec) Not detected [facility] No Panel Informationon 12-03 Influenza Types A,B Rapid (Clinic) Not detected [facility] Basophil percentageon 2021 Basophil percentage < 0.9 mg/dL 0.55-1.02 [facility] Work Phone: No Panel Informationon 10-25 Bedside Estimated GFR (eGFR) > 60.0000 mL/min >60 [facility] Work Phone: Vital Signs Date Time Vital Sign Value Performing Clinician Faci lity 02-21-2022 10:56-0500 Body temperature 98.2 [degF] Dr. Marjorie Alford Work Phone: [facility] 02-21-2022 10:56-0500 Diastolic blood pressure 92 mm[Hg] Dr. Marjorie Alford Work Phone: [facility] 02-21-2022 10:56-0500 Heart rate 86 /min Dr. Marjorie Alford Work Phone: [facility] 02-21-2022 10:56-0500 Respiratory rate 18 /min Dr. Marjorie Alford Work Phone: 3([phone] [place] [address] 02-21-2022 10:56-0500 SaO2% (BldA) [Mass fraction] 98 % Dr. Marjorie Alford Work Phone: 4(954)[phone] [place] [address] 02-21-2022 10:56-0500 Systolic blood pressure 152 mm[Hg] Dr. Marjorie Alford Work Phone: 4(025)[phone] [place] [address] 12-03-2021 11:47-0400 Body temperature 97 [degF] Dr. Marjorie Alford Work Phone: 1(296)[phone] [place] [address] 12-03-2021 11:47-0400 Diastolic blood pressure 72 mm[Hg] Dr. Marjorie Alford Work Phone: 8([phone] [place] [address] 12-03-2021 11:47-0400 Heart rate 87 /min Dr. Marjorie Alford Work Phone: [phone] [place] [address] 12-03-2021 11:47-0400 Respiratory rate 14 /min Dr. Marjorie Alford Work Phone: [facility] 12-03-2021 11:47-0400 SaO2% (BldA) [Mass fraction] 97 % Dr. Marjorie Alford Work Phone: [facility] 12-03-2021 11:47-0400 Systolic blood pressure 124 mm[Hg] Dr. Marjorie Alford Work Phone: [facility] 09-25-2021 15:04-0400 Body height 160.02 cm [facility] Work Phone: Encounters Encounter Date Encounter Type Care Provider Facility Start: 03-11-2024 End: 03-11-2024 ambulatory Marjorie Alford Facility:[facility] Start: 03-05-2024 End: 03-05-2024 ambulatory Marjorie Alford Facility:[facility] Start: 11-24-2023 End: 11-24-2023 ambulatory Marjorie Alford Facility:[facility] Start: 03-14-2022 End: 03-14-[address] Marjorie Alford Work Phone: [facility] Work Phone: Start: 03-14-2022 End: 03-14-[address] Marjorie Alford Work Phone: [place] Start: 02-21-2022 End: 02-21-[address] Marjorie Alford Work Phone: [facility] Start: 12-05-2021 End: 12-05-[address] Marjorie Alford Work Phone: [facility] Work Phone: Start: 12-05-2021 End: 12-05-[address] Marjorie Alford Work Phone: [facility] Start: 12-03-2021 End: 12-03-[address] Marjorie Alford Work Phone: [facility] Start: 10-25-2021 End: 10-25-2021 ambulatory [facility] Work Phone: Start: 10-25-2021 End: 10-25-2021 Patient encounter procedure [facility] Start: 10-08-2021 End: 10-08-2021 Patient encounter procedure [facility] Ultrasound Start: 09-25-2021 End: 07-26-2022 Patient encounter procedure [facility]-Outpatient Bone Densitometry Procedures Date Procedure Procedure Detail Performing Clinician Start: 10-25-2021 MRI of bilateral riana asts with contrast Start: 10-08-2021 Mammography Start: 10-08-2021 Ultrasonography of breast Start: 09-25-2021 Dual energy X-ray absorptiometry Start: 09-25-2021 Screening mammography Payers Date Payer Category Payer Self-pay [id number] 2015 Unknown [id number] Medicare [id number] Unknown [facility] [employer] [id number] Unknown [id number] Unknown [id number] Unknown [id number] Social History Date Type Detail Facility Start: 04-30-2021 End: 02-21-2022 Tobacco smoking status MSIS Unknown if ever smoked [facility] Start: 1955 Sex Assigned At Female [facility] Evaluation note Note Date & Type Note Facility Evaluation note No assessment information availa ble [facility] Work Phone: Evaluation note Note Date & Type Note Facility Evaluation note Diagnosis Onset Date Acute pharyngitis acute Contact with or suspected ex posure to other viral communicable disease acute [facility] Work Phone: Evaluation note Note Date & Type Note Facility Evaluation note Diagnosis Onset Date Acute pharyngitis acute Contact with or suspected ex posure to other viral communicable disease acute Contact with and (suspected) exposure to other viral communicable diseases acute [facility] Work Phone: Chief Complaint and Reason for Visit Chief Complaint SCREENING/OSTEO Chief Complaint SCREENING/OSTEO ABNORMAL MAMMOGRAM Chief Complaint SCREENING/OSTEO ABNORMAL MAMMOGRAM NODULE ON RIGHT BREAST Chief Complaint SCREENING/OSTEO ABNORMAL MAMMOGRAM NODULE ON RIGHT BREAST COVID TEST/STREP TEST Reason for Visit Acute pharyngitis Contact with or suspected exposure to other viral communicable disease Chief Complaint COVID TEST/STREP MYRA T COUGH, CONGESTED EORDER Reason for Visit Acute pharyngitis Contact with or suspected exposure to other viral communicable disease Contact with and (suspected) exposure to other viral communicable diseases Family History No Family History Records Found Relationship Condition Age at Onset Recorded Date/T carlos mother Malignant neoplasm Unknown father Cardiac disease Unknown sister Malignant neoplasm of breast Unknown Advance Directives No Advanced Directives Records Found Advance Directive Response Recorded Date/ Time Advance Directives Yes January 2:47pm Living Will Yes January 30, 2 021 3:23pm Power of [employer] Department Supervisor Yes January 30, 2021 3:23pm Advance Directive Response Recorded Date/ Time Advance Directives Yes January 1:47pm Living Will Yes January 30, 2 021 2:23pm Power of [employer] Department Supervisor Yes January 30, 2021 2:23pm Summary Purpose Additional Source Comments Goals (unrecognized section and content) Goals may be documented in a n alternate sectionGoals may be documented in an alternate sectionGoals may be documented in an alternate sectionGoals may be documented in an alternate sectionGoals may be documented in an alternate section Care Teams (unrecognized sec tion and content) Team Status: Active Member Role Status Dates Dr. Marjorie Alford MD Family Provider Active Dr. Marjorie Alford MD Primary Care Provider Active Team Status: Inactive Member Role Status Dates Dr. Marjorie Alford MD Primary Care Provider, Refertimothy g Provider Active Gavin BECERRA, [place] Attending Provider Active Team Status: Inactive Member Role Status Dates Dr. Marjorie Alford MD Primary Care Provider, Referrin g Provider Active [place] BECERRA, [place] Attending Provider Active Team Status: Inactive Member Role Status Dates Dr. Marjorie Alford MD Primary Care Prov ider, Attending Provider, Referring Provider Active INFORMATION SOURCE (unrecogn ized section and content) DATE CREATED AUTHOR 04/05/2024 [facility] FOR RECORDS PERTAINING TO PATIENTS WHO ARE OR HAVE BEEN ENROLLED IN A CHEMICAL DEPENDENCY/SUBSTANCEABUSE PROGRAM, SOME INFORMATION MAY BE OMITTED. This clinical summary was aggregated from multiple sources. Caution should be exercised in using it in the provision of clinical care. This summary normalizes information from multiple sources, and as a consequence, information in this document may materially change the coding, format and clinical context of patient data. In addition, data may be omitted in some cases. CLINICAL DECISIONS SHOULD BE BASED ON THE PRIMARY CLINICAL RECORDS. [facility] [employer] [facility]. provides no warranty or guarantee of the accuracy or completeness of information in this document.
== END 2025-03-02 10:08 | disposition home or self-care (01) ==
PROVIDERS: Emergency Provider Emergency Medicine; PCP Family Medicine; Visit Provider Emergency Medicine
DX: M25.562 Pain in left knee (principal); M17.12 Unilateral primary osteoarthritis, left knee; Z90.710 Acquired absence of both cervix and uterus; M25.40 Effusion, unspecified joint; E78.00 Pure hypercholesterolemia, unspecified; E03.9 Hypothyroidism, unspecified; Z79.890 Hormone replacement therapy; Z79.899 Other long term (current) drug therapy; Z90.49 Acquired absence of other specified parts of digestive tract
CPT/HCPCS: 73564; 96372; 99282